=== PATIENT | female | born 1960 | race Caucasian/White ===

== ENCOUNTER 2020-03-01 20:45 | Inpatient (IN) | payer BC ==
[~2020-03-01] VITALS: Ht 157.5 cm; Wt 95.7 kg
[2020-03-01 20:45] VITALS: BP 108/62
--- NOTE | 2020-03-01 20:45 | NUR ---
The patient, ASHWIN HARDY, 59 y/o, F admitted by AMARA HILL MD, was given written information regarding hospital policies, unit procedures and contact persons. Patient transferred by EMS from [facility] with acute diverticulitis, Perforated bowel. Patient oriented to room, bed, phone, call light and POC. Patient instructed to call for assistance and verbalized understanding. Will place call to Dr. Hill for admit orders. Valuables were checked and offered security lock up of credit cards/valuables in Patient's purse and Patient declined.
--- NOTE | 2020-03-01 21:04 | NUR ---
See admission assessment/documentation. Awaiting call from Dr. Hill for orders.
--- NOTE | 2020-03-01 21:51 | NUR ---
Call from Dr. Hill, orders received.
[2020-03-01] MEDS ORDERED: ACETAMINOPHEN 650 MG/20.3 ML SOLUTION. PO PRN (22:00)
[2020-03-01] MEDS: IV RINGERS,LACTATED 1000ML 1,000 ML IV SCH (22:24)
[2020-03-01] MEDS: MORPHINE SULFATE 2 MG/ML VIAL. IV PRN (22:24)
[2020-03-01 23:00] VITALS: BP 109/56
[2020-03-02] MEDS: PIPERACILLIN/TAZOBACTAM 4.5 GM in IV NORMAL SALINE 100ML 100 ML IV SCH ×2 (00:47→06:05)
--- NOTE | 2020-03-02 00:48 | NUR ---
Covid swabs obtained and sent to lab.
[2020-03-02] MEDS: MORPHINE SULFATE 2 MG/ML VIAL. IV PRN ×5 (02:39→18:09)
--- NOTE | 2020-03-02 02:45 | NUR ---
Patient transferred post informing her of positive Covid test to room 658 per wheelchair with all belongings, chart and antibiotics. Patient given HIPPA code to call her and give him. Patient was given pain medication prior to transfer and report given to Regis RN. Regis RN meet Patient in room upon arrival.
[2020-03-02 03:00] VITALS: BP 121/68
--- NOTE | 2020-03-02 04:10 | NUR ---
[facility] records received over fax machine. Call to [phone]) and spoke with Crystal AQUINO informing her records tubed to 6S. Records received via tube system by Crystal AQUINO.
[2020-03-02 07:05] VITALS: BP 145/60
[2020-03-02 07:56] LABS: BASO # 0.1 x10^3/uL (0.0-0.2); BASO % 0 % (0-3); EOS # 0.1 x10^3/uL (0.0-0.7); EOS % 1 % (0-3); HEMATOCRIT 40.3 % (36.0-47.0); HEMOGLOBIN 13.6 g/dL (12.0-15.5); LYMPH # 1.6 x10^3/uL (1.0-4.8); LYMPH % 10 % (24-48); MEAN CORPUSCULAR HEMOGLOBIN 30 pg (25-35); MEAN CORPUSCULAR HGB CONC 34 g/dL (31-37); MEAN CORPUSCULAR VOLUME 88 fL (79-100); MONO # 0.7 x10^3/uL (0.0-1.1); MONO % 5 % (0-9); NEUT # 13.6 x10^3/uL (1.8-7.7); NEUT % 85 % (31-73); PLATELET COUNT 177 x10^3/uL (140-400); RED BLOOD COUNT 4.59 x10^6/uL (3.50-5.40); RED CELL DISTRIBUTION WIDTH 22.5 % (11.5-14.5); WHITE BLOOD COUNT 16.1 x10^3/uL (4.0-11.0)
[2020-03-02] MEDS: IV RINGERS,LACTATED 1000ML 1,000 ML IV SCH ×3 (08:00→21:13)
[2020-03-02] MEDS: oxyCODONE/APAP 10/325 1 TAB TABLET PO PRN ×3 (08:19→21:15)
[2020-03-02 08:22] LABS: ALBUMIN/GLOBULIN RATIO 0.9 (1.0-1.7); CALCIUM 8.4 mg/dL (8.5-10.1); CREATININE 0.7 mg/dL (0.6-1.0); GFR 85.6; POTASSIUM 3.7 mmol/L (3.5-5.1); TOTAL BILIRUBIN 0.8 mg/dL (0.2-1.0); TOTAL PROTEIN 6.2 g/dL (6.4-8.2)
[2020-03-02 08:28] LABS: % BANDS 20 % (0-9); % LYMPHS 13 % (24-48); % MONOS 3 % (0-10); % SEGS 64 % (35-66)
[2020-03-02 08:29] LABS: PLT ESTIMATE ADEQUATE (ADEQUATE)
[2020-03-02 08:32] LABS: ANISOCYTOSIS MOD; MICROCYTOSIS SLIGHT
[2020-03-02 08:33] LABS: TOXIC GRANULATION SLIGHT
[2020-03-02 11:05] VITALS: BP 110/78
[2020-03-02] MEDS: PIPERACILLIN/TAZOBACTAM 3.375 GM in IV NORMAL SALINE 50ML 50 ML IV SCH ×3 (12:04→21:14)
--- NOTE | 2020-03-02 14:20 | PDOC1 ---
History and Physical Date of Service: DOS: DATE: 03/02/20 TIME: 14:12 Chief Complaint: Chief Complain: Abdominal pain History of Present Illness: HPI: Patient is a 59-year-old female with past medical history of rheumatoid arthritis and diverticulosis which she presents with lower quadrant abdominal pain aching, 10 out of 10, nonradiating, constant. Patient states that she developed this pain that started on Saturday after she had Chinese fries and biscuits. She did not have any fibers or fruits. She states she is normally fairly regular with normal bowel movements daily. She has been constipated for approximately 4 days. Her last bowel movement was mucousy and small but no blood. Denies fevers, cough, shortness of breath, chest pain, dysuria, bloody stools. Of note, patient was also found at [facility] ER to be COVID positive. Dr. Glaser from general surgery was consulted at the time and only recommended IV antibiotics, keep patient n.p.o., and that the patient did not need any surgical intervention at that time. Patient was transferred here for higher level of care. Past Medical/Surgical History: PMH/PSH: Past medical history: Rheumatoid arthritis, History of diverticulosis Past surgical history: Bilateral total knee replacement, partial hysterectomy Allergies: Allergies: Coded Allergies: abatacept (Verified Allergy, Severe, 03/01/20) Family History: Family History: Reviewed and positive for diabetes and high cholesterol in mother. Stomach cancer in the father Social History: Social History: Denies smoking, alcohol, or drug abuse Current Medications: Current Medications Current Medications Ringer's Solution 1,000 ml @ 100 mls/hr Q10H IV Last administered on 03/01/20at 22:24; Start 03/01/20 at 22:00 Acetaminophen (Tylenol) 650 mg PRN Q6HRS PRN PO TEMP/MILD PAIN; Start 03/01/20 at 22:00 Morphine Sulfate (Morphine Sulfate) 2 mg PRN Q3HRS PRN IV PAIN Last administered on 03/02/20at 06:04; Start 03/01/20 at 22:00; Stop 03/02/20 at 08:09; Status DC Piperacillin Sod/ Tazobactam Sod 4.5 gm/Sodium Chloride 100 ml @ 200 mls/hr Q6HRS IV Last administered on 03/02/20at 06:05; Start 03/02/20 at 00:00; Stop 03/02/20 at 10:11; Status DC Morphine Sulfate (Morphine Sulfate) 2 mg PRN Q2HR PRN IV PAIN Last administered on 03/02/20at 12:28; Start 03/02/20 at 08:15 Oxycodone/ Acetaminophen (Percocet 10/325) 1 tab PRN Q6HRS PRN PO MODERATE-SEVERE PAIN Last administered on 03/02/20at 08:19; Start 03/02/20 at 08:15 Lactobacillus Rhamnosus (Culturelle) 1 cap BID PO ; Start 03/02/20 at 21:00 Piperacillin Sod/ Tazobactam Sod 3.375 gm/Sodium Chloride 50 ml @ 100 mls/hr Q6HRS IV Last administered on 03/02/20at 12:04; Start 03/02/20 at 12:00 ROS: Review of Systems Review of System REVIEW OF SYSTEMS: GENERAL: Denies weakness SKIN: No bruising, hair changes or rashes. EYES: No blurred, double or loss of vision. NOSE AND THROAT: No history of nosebleeds, hoarseness or sore throat. HEART: No history of palpitations, chest pain or shortness of breath on exertion. LUNGS: Denies cough, hemoptysis, wheezing or shortness of breath. GASTROINTESTINAL: Denies changes in appetite, nausea, vomiting, diarrhea or constipation. GENITOURINARY: No history of frequency, urgency, hesitancy or nocturia. NEUROLOGIC: Denies history of numbness, tingling, or tremor. PSYCHIATRIC: No history of panic, anxiety or depression. ENDOCRINE: No history of heat or cold intolerance, polyuria or polydipsia. EXTREMITIES: Denies joint pain, pain on walking or stiffness. Physical Exam: Vital Signs: Vital Signs Date Time Temp Pulse Resp B/P (MAP) Pulse Ox O2 Delivery O2 Flow Rate FiO2 03/02/20 11:05 98.4 77 20 110/78 (89) 97 Room Air 98.4 Physcial Exam: GEN: No apparent distress. Alert and oriented HEENT: Normal cephalic, atraumatic, external auditory canals are patent EYES: Extraocular muscles are intact, pupil are equally round and reactive to light and accommodation MUSCULOSKELETAL: Well developed , well nourished, good range of motion ENDOCRINE: No thyromegaly was palpated LYMPHATICS: No cervical chain or axillary nodes were noted HEMATOPOIETIC: No bruising NECK: Supple, no JVD, no thyromegaly was noted LUNGS: Clear to auscultation in all lung jang without rhonchi or wheezing HEART: RRR, S!, S2 present. Peripheral pulses intact, no obvious murmurs noted ABDOMEN: Soft, nontender. Positive bowel sounds, no organomegaly, normal bowel sounds EXTREMITIES: Without clubbing, cyanosis, or edema. Pedal pulses intact. Negative Homans sign NEUROLOGIC: Normal speech and tone. A&O x 3, moves all extremities, no o bvious focal deficits PSYCHIATRIC: Normal affect, normal mood. Stable SKIN: No ulcerations or rashes, good skin turgor, no jaundice VASCULAR: Good capillary refill, neurovascular bundle appears to be intact Labs: Labs: Laboratory Tests Test 03/02/20 00:48 03/02/20 07:48 SARS-CoV-2 Antigen (Rapid) Positive (NEGATIVE) White Blood Count 16.1 x10^3/uL (4.0-11.0) Red Blood Count 4.59 x10^6/uL (3.50-5.40) Hemoglobin 13.6 g/dL (12.0-15.5) Hematocrit 40.3 % (36.0-47.0) Mean Corpuscular Volume 88 fL (79-100) Mean Corpuscular Hemoglobin 30 pg (25-35) Mean Corpuscular Hemoglobin Concent 34 g/dL (31-37) Red Cell Distribution Width 22.5 % (11.5-14.5) Platelet Count 177 x10^3/uL (140-400) Neutrophils (%) (Auto) 85 % (31-73) Lymphocytes (%) (Auto) 10 % (24-48) Monocytes (%) (Auto) 5 % (0-9) Eosinophils (%) (Auto) 1 % (0-3) Basophils (%) (Auto) 0 % (0-3) Neutrophils # (Auto) 13.6 x10^3/uL (1.8-7.7) Lymphocytes # (Auto) 1.6 x10^3/uL (1.0-4.8) Monocytes # (Auto) 0.7 x10^3/uL (0.0-1.1) Eosinophils # (Auto) 0.1 x10^3/uL (0.0-0.7) Basophils # (Auto) 0.1 x10^3/uL (0.0-0.2) Segmented Neutrophils % 64 % (35-66) Band Neutrophils % 20 % (0-9) Lymphocytes % 13 % (24-48) Monocytes % 3 % (0-10) Toxic Granulation Slight Platelet Estimate Adequate (ADEQUATE) Anisocytosis Mod Microcytosis Slight Sodium Level 139 mmol/L (136-145) Potassium Level 3.7 mmol/L (3.5-5.1) Chloride Level 104 mmol/L (98-107) Carbon Dioxide Level 26 mmol/L (21-32) Anion Gap 9 (6-14) Blood Urea Nitrogen 10 mg/dL (7-20) Creatinine 0.7 mg/dL (0.6-1.0) Estimated GFR (Cockcroft-Gault) 85.6 BUN/Creatinine Ratio 14 (6-20) Glucose Level 113 mg/dL (70-99) Calcium Level 8.4 mg/dL (8.5-10.1) Total Bilirubin 0.8 mg/dL (0.2-1.0) Aspartate Amino Transf (AST/SGOT) 10 U/L (15-37) Alanine Aminotransferase (ALT/SGPT) 16 U/L (14-59) Alkaline Phosphatase 59 U/L (46-116) Total Protein 6.2 g/dL (6.4-8.2) Albumin 3.0 g/dL (3.4-5.0) Albumin/Globulin Ratio 0.9 (1.0-1.7) Laboratory Tests Test 03/02/20 00:48 03/02/20 07:48 SARS-CoV-2 Antigen (Rapid) Positive (NEGATIVE) White Blood Count 16.1 x10^3/uL (4.0-11.0) Red Blood Count 4.59 x10^6/uL (3.50-5.40) Hemoglobin 13.6 g/dL (12.0-15.5) Hematocrit 40.3 % (36.0-47.0) Mean Corpuscular Volume 88 fL (79-100) Mean Corpuscular Hemoglobin 30 pg (25-35) Mean Corpuscular Hemoglobin Concent 34 g/dL (31-37) Red Cell Distribution Width 22.5 % (11.5-14.5) Platelet Count 177 x10^3/uL (140-400) Neutrophils (%) (Auto) 85 % (31-73) Lymphocytes (%) (Auto) 10 % (24-48) Monocytes (%) (Auto) 5 % (0-9) Eosinophils (%) (Auto) 1 % (0-3) Basophils (%) (Auto) 0 % (0-3) Neutrophils # (Auto) 13.6 x10^3/uL (1.8-7.7) Lymphocytes # (Auto) 1.6 x10^3/uL (1.0-4.8) Monocytes # (Auto) 0.7 x10^3/uL (0.0-1.1) Eosinophils # (Auto) 0.1 x10^3/uL (0.0-0.7) Basophils # (Auto) 0.1 x10^3/uL (0.0-0.2) Segmented Neutrophils % 64 % (35-66) Band Neutrophils % 20 % (0-9) Lymphocytes % 13 % (24-48) Monocytes % 3 % (0-10) Toxic Granulation Slight Platelet Estimate Adequate (ADEQUATE) Anisocytosis Mod Microcytosis Slight Sodium Level 139 mmol/L (136-145) Potassium Level 3.7 mmol/L (3.5-5.1) Chloride Level 104 mmol/L (98-107) Carbon Dioxide Level 26 mmol/L (21-32) Anion Gap 9 (6-14) Blood Urea Nitrogen 10 mg/dL (7-20) Creatinine 0.7 mg/dL (0.6-1.0) Estimated GFR (Cockcroft-Gault) 85.6 BUN/Creatinine Ratio 14 (6-20) Glucose Level 113 mg/dL (70-99) Calcium Level 8.4 mg/dL (8.5-10.1) Total Bilirubin 0.8 mg/dL (0.2-1.0) Aspartate Amino Transf (AST/SGOT) 10 U/L (15-37) Alanine Aminotransferase (ALT/SGPT) 16 U/L (14-59) Alkaline Phosphatase 59 U/L (46-116) Total Protein 6.2 g/dL (6.4-8.2) Albumin 3.0 g/dL (3.4-5.0) Albumin/Globulin Ratio 0.9 (1.0-1.7) Images: Images CT abdomen pelvis reviewed from [facility] Showing sigmoid diverticulitis with focal contained perforation Right-sided nephrolithiasis nonobstructive Distended gallbladder Assessment/Plan Assessment/Plan COVID-19 infection Abdominal pain due to acute diverticulitis with contained perforation History of rheumatoid arthritis Admit to medicine for further management GI consult Continue IV Zosyn Serial abdominal exams Keep n.p.o. with sips with meds until passing flatus Lovenox for DVT prophylaxis ADA diet Full code Discussed with RN and SW Disposition inpatient care as above Surrogate decision maker is Justifications for Admission Other Justification LEONIE GUTIERREZ MD Mar 02, 2020 14:20
[2020-03-02 15:05] VITALS: BP 123/77
--- NOTE | 2020-03-02 16:04 | PDOC2 ---
GI CONSULT Date of Service: DATE: 03/02/20 TIME: 15:52 Reason For Consult: diverticulitis with contained perf HPI: HPI: 59 y/o female from [facility] who tested positive for COVID-19. Sudden onset of LLQ pain on Saturday, no precipitating events but mentions she ate some fries. Associated w/ change in bowel habits - usualyl has very regular bowel pattern but has felt constipated x 4 days - describes small stools. Vomited yesterday x 1. Mild fever. CT report reviewed: findings of acute diverticulitis with a focal contained perforation adjacent to the sigmoid colon measuring 4 x 2.5cm, moderate-sized hiatal hernia which contains portions of the pancreas, distended GB w/o infl ammation, right-sided nephrolithiasis. H/o GERD on omeprazole. Also reports hiatal hernia and "I've been burping." No dysphagia, diarrhea, hematochezia, melena, or weight loss. Tells me EGD and colonoscopy w/ Dr. Garcia @ [facility] ~1 month ago showed Meyers's esophagus, pre-cancerous colon polyps, and diverticulosis. No GB, liver, pancreas, or PUD history. Crying when I saw her - morphine not working, Percocet helps but worried it was be constipating. D/w nurse - Percocet helps quickly, otherwise crying. Ate regular food earlier, now NPO. Reports surgery has seen. PMH: PMH: RA bilateral knee replacements, partial hysterectomy FH: Family History: Cancer (father - stomach) Social History: Smoke: No ALCOHOL: none Drugs: Marijuana (tox screen +) ROS: GEN: +fever HEENT: Denies blurred vision, sore throat CV: Denies chest pain RESP: Denies shortness of air, cough GI: Per HPI : Denies hematuria, dysuria ENDO: Denies weight changes NEURO: Denies confusion, dizziness MSK: Denies weakness, joint pain/swelling SKIN: Denies jaundice, pruritus Vitals: Vitals: Vital Signs Date Time Temp Pulse Resp B/P (MAP) Pulse Ox O2 Delivery O2 Flow Rate FiO2 03/02/20 11:05 98.4 77 20 110/78 (89) 97 Room Air 98.4 Labs: Labs: Laboratory Tests Test 03/02/20 00:48 03/02/20 07:48 SARS-CoV-2 Antigen (Rapid) Positive (NEGATIVE) White Blood Count 16.1 x10^3/uL (4.0-11.0) Red Blood Count 4.59 x10^6/uL (3.50-5.40) Hemoglobin 13.6 g/dL (12.0-15.5) Hematocrit 40.3 % (36.0-47.0) Mean Corpuscular Volume 88 fL (79-100) Mean Corpuscular Hemoglobin 30 pg (25-35) Mean Corpuscular Hemoglobin Concent 34 g/dL (31-37) Red Cell Distribution Width 22.5 % (11.5-14.5) Platelet Count 177 x10^3/uL (140-400) Neutrophils (%) (Auto) 85 % (31-73) Lymphocytes (%) (Auto) 10 % (24-48) Monocytes (%) (Auto) 5 % (0-9) Eosinophils (%) (Auto) 1 % (0-3) Basophils (%) (Auto) 0 % (0-3) Neutrophils # (Auto) 13.6 x10^3/uL (1.8-7.7) Lymphocytes # (Auto) 1.6 x10^3/uL (1.0-4.8) Monocytes # (Auto) 0.7 x10^3/uL (0.0-1.1) Eosinophils # (Auto) 0.1 x10^3/uL (0.0-0.7) Basophils # (Auto) 0.1 x10^3/uL (0.0-0.2) Segmented Neutrophils % 64 % (35-66) Band Neutrophils % 20 % (0-9) Lymphocytes % 13 % (24-48) Monocytes % 3 % (0-10) Toxic Granulation Slight Platelet Estimate Adequate (ADEQUATE) Anisocytosis Mod Microcytosis Slight Sodium Level 139 mmol/L (136-145) Potassium Level 3.7 mmol/L (3.5-5.1) Chloride Level 104 mmol/L (98-107) Carbon Dioxide Level 26 mmol/L (21-32) Anion Gap 9 (6-14) Blood Urea Nitrogen 10 mg/dL (7-20) Creatinine 0.7 mg/dL (0.6-1.0) Estimated GFR (Cockcroft-Gault) 85.6 BUN/Creatinine Ratio 14 (6-20) Glucose Level 113 mg/dL (70-99) Calcium Level 8.4 mg/dL (8.5-10.1) Total Bilirubin 0.8 mg/dL (0.2-1.0) Aspartate Amino Transf (AST/SGOT) 10 U/L (15-37) Alanine Aminotransferase (ALT/SGPT) 16 U/L (14-59) Alkaline Phosphatase 59 U/L (46-116) Total Protein 6.2 g/dL (6.4-8.2) Albumin 3.0 g/dL (3.4-5.0) Albumin/Globulin Ratio 0.9 (1.0-1.7) Allergies: Coded Allergies: abatacept (Verified Allergy, Severe, 03/01/20) Medications: Current Medications Medications (Trade) Dose Ordered Sig/Cristiane Route PRN Reason Start Time Stop Time Status Last Admin Dose Admin Ringer's Solution 1,000 ml @ 100 mls/hr Q10H IV 03/01/20 22:00 03/02/20 08:00 Morphine Sulfate (Morphine Sulfate) 2 mg PRN Q3HRS PRN IV PAIN 03/01/20 22:00 03/02/20 08:09 DC 03/02/20 06:04 Piperacillin Sod/ Tazobactam Sod 4.5 gm/Sodium Chloride 100 ml @ 200 mls/hr Q6HRS IV 03/02/20 00:00 03/02/20 10:11 DC 03/02/20 06:05 Morphine Sulfate (Morphine Sulfate) 2 mg PRN Q2HR PRN IV PAIN 03/02/20 08:15 03/02/20 12:28 Oxycodone/ Acetaminophen (Percocet 10/325) 1 tab PRN Q6HRS PRN PO MODERATE-SEVERE PAIN 03/02/20 08:15 03/02/20 15:07 Piperacillin Sod/ Tazobactam Sod 3.375 gm/Sodium Chloride 50 ml @ 100 mls/hr Q6HRS IV 03/02/20 12:00 03/02/20 12:04 Imaging: Imaging: Per HPI. PE: GEN: was asleep, then crying during interview HEENT: Atraumatic, PERRL LUNGS: CTAB HEART: RRR ABD: quiet, soft, LLQ quite tender to light palpation EXTREMITY: No edema SKIN: No rashes, no jaundice NEURO/PSYCH: A & O 3, anxious A/P: A/P: LLQ pain, constipation, fever, vomiting +COVID-19, leukocytosis Diverticulitis w/ contained perf GERD/Meyers's, hiatal hernia - on PPI, EGD ~1 month ago w/ Dr. Garcia CRC screen, h/o adenomatous polyps - colonoscopy ~1 month ago w/ Dr. Garcia -- Continue atbx and NPO, follow surgery recs. Defer pain management to Dr. Andrews. IV PPI for GERD history. JOHNNIE KING Mar 02, 2020 16:04
--- NOTE | 2020-03-02 17:17 | NUR ---
SW following. Spoke with RN and reviewed chart. Pt from home. SW attempted to call into pt's room as pt is COVID positive, but there was no answer. SW currently on IV Zosyn and IV pain medication. Pt on room air and GI soft diet. SW following for discharge planning.
--- NOTE | 2020-03-02 18:27 | NUR ---
Discharge Note: DAYANA HARDY [facility] Discharge instructions and discharge home medications reviewed with Patient and a copy given. All questions have been answered and understanding verbalized. The following instructions and handouts were given: SOB Discontinued lines and drains: Peripheral IV intact. Patient discharged to Home or Self Care with Family Member via Wheelchair
[2020-03-02] MEDS ORDERED: NALOXONE 0.4 MG/ML VIAL. IV PRN (18:30)
[2020-03-02 19:00] VITALS: BP 91/46
[2020-03-02] MEDS ORDERED: HYDROmorphone 12mg/30ml PCA 30 ML IV PRN (19:00)
[2020-03-02] MEDS: IV NORMAL SALINE 1000ML BAG 1,000 ML IV SCH (21:12)
[2020-03-02] MEDS: LACTOBACILLUS RHAMNOSUS GG 1 CAPSULE. PO SCH (21:14)
[2020-03-02 23:00] VITALS: BP 102/56
[2020-03-03] VITALS (7 sets, daily range): BP systolic 104–126; BP diastolic 55–59
[2020-03-03] MEDS: oxyCODONE/APAP 10/325 1 TAB TABLET PO PRN ×3 (04:22→17:32)
[2020-03-03] MEDS: PIPERACILLIN/TAZOBACTAM 3.375 GM in IV NORMAL SALINE 50ML 50 ML IV SCH ×3 (04:22→17:32)
[2020-03-03] MEDS ORDERED: OMEP40CA45 PO (07:22)
[2020-03-03] MEDS ORDERED: PRED20TA PO (07:24)
[2020-03-03] MEDS: PANTOPRAZOLE IV PUSH 40 MG VIAL. IVP SCH (07:57)
[2020-03-03] MEDS: LACTOBACILLUS RHAMNOSUS GG 1 CAPSULE. PO SCH ×2 (07:57→22:10)
[2020-03-03] MEDS: IV NORMAL SALINE 1000ML BAG 1,000 ML IV SCH ×2 (10:29→18:47)
--- NOTE | 2020-03-03 11:43 | PDOC ---
[employer] PROGRESS NOTE Date of Service DOS: DATE: 03/03/20 TIME: 11:35 Chief Complaint Chief Complaint COVID-19 infection Abdominal pain due to acute diverticulitis with contained perforation History of rheumatoid arthritis A/P: Admit to medicine for further management GI consult Continue IV Zosyn Serial abdominal exams Keep n.p.o. with sips with meds until passing flatus Lovenox for DVT prophylaxis ADA diet Full code Discussed with RN and SW Disposition inpatient care as above Surrogate decision maker is History of Present Illness History of Present Illness Patient is a 59-year-old female with past medical history of rheumatoid arthrit is and diverticulosis which she presents with lower quadrant abdominal pain aching, 10 out of 10, nonradiating, constant. Patient states that she developed this pain that started on Saturday after she had [place] fries and biscuits. She did not have any fibers or fruits. She states she is normally fairly regular with normal bowel movements daily. She has been constipated for approximately 4 days. Her last bowel movement was mucousy and small but no blood. Denies fevers, cough, shortness of breath, chest pain, dysuria, bloody stools. Of note, patient was also found at [facility] ER to be COVID positive. Dr. Glaser from general surgery was consulted at the time and only recommended IV antibiotics, keep patient n.p.o., and that the patient did not need any surgical intervention at that time. Patient was transferred here for higher level of care. 03/03/2020 Patient evaluated bedside. No acute events overnight. Chart and labs reviewed, discussed with RN. Confined perforation, no urgent intervention needed. May need percutaneous drainage or surgery eventually. Continue antibiotics for now. Add Flagyl for anaerobic coverage. Will consult general surgery for evaluation. Vitals/I&O Vitals/I&O: Vital Signs Date Time Temp Pulse Resp B/P (MAP) Pulse Ox O2 Delivery O2 Flow Rate FiO2 03/03/20 11:05 98.8 85 20 119/58 (78) 93 Room Air 98.8 I & O 03/02/20 03/02/20 03/03/20 14:59 22:59 06:59 Intake Total 0 ml 1500 ml Balance 0 ml 1500 ml Physical Exam General: Alert Heart: Regular rate Lungs: Clear Abdomen: No masses Extremities: No clubbing Skin: No rashes Review of Systems Review of Systems: Denies fever, denies chest pain, denies shortness of breath. Assessment and Plan Problems: (1) Sepsis Qualifiers: (2) Acute diverticulitis (3) Perforated bowel Comment Review of Relevant I have reviewed the following items georgina (where applicable) has been applied. Medications: Current Medications Medications (Trade) Dose Ordered Sig/Cristiane Route PRN Reason Start Time Stop Time Status Last Admin Dose Admin Lactobacillus Rhamnosus (Culturelle) 1 cap BID PO 03/02/20 21:00 03/03/20 07:57 Piperacillin Sod/ Tazobactam Sod 3.375 gm/Sodium Chloride 50 ml @ 100 mls/hr Q6HRS IV 03/02/20 12:00 03/03/20 11:30 Pantoprazole Sodium (PROTONIX VIAL for IV PUSH) 40 mg DAILYAC IVP 03/03/20 07:30 03/03/20 07:57 Sodium Chloride 1,000 ml @ 25 mls/hr Q24H IV 03/02/20 19:00 03/02/20 21:12 Hydromorphone HCl 30 ml @ 0 mls/hr CONT PRN PRN IV PER PROTOCOL 03/02/20 19:00 03/02/20 19:15 Sodium Chloride 1,000 ml @ 75 mls/hr [id number] IV 03/03/20 09:45 03/03/20 10:29 Justifications for Admission Other Justification SAIDA NOONAN MD Mar 03, 2020 11:43
--- NOTE | 2020-03-03 13:25 | NUR ---
SW following. Spoke with RN and reviewed chart. Pt to discharge home today, self-care. Pt on oral medications and room air. No further SW needs at this time.
[2020-03-03] MEDS ORDERED: ASCO500C PO (13:46)
[2020-03-03] MEDS ORDERED: CHOL500021 PO (13:46)
[2020-03-03] MEDS ORDERED: ZINC50TA39 PO (13:46)
--- NOTE | 2020-03-03 13:59 | PDOC ---
G I PROGRESS NOTE Subjective In COVID isolation; not seen directly. Objective Discussed with nurse. Pain control better. Trying clears. Physical Exam No direct PE. Review of Relevant I have reviewed the following items georgina (where applicable) has been applied. Labs Laboratory Tests Test 03/02/20 00:48 03/02/20 07:48 SARS-CoV-2 Antigen (Rapid) Positive (NEGATIVE) White Blood Count 16.1 x10^3/uL (4.0-11.0) Red Blood Count 4.59 x10^6/uL (3.50-5.40) Hemoglobin 13.6 g/dL (12.0-15.5) Hematocrit 40.3 % (36.0-47.0) Mean Corpuscular Volume 88 fL (79-100) Mean Corpuscular Hemoglobin 30 pg (25-35) Mean Corpuscular Hemoglobin Concent 34 g/dL (31-37) Red Cell Distribution Width 22.5 % (11.5-14.5) Platelet Count 177 x10^3/uL (140-400) Neutrophils (%) (Auto) 85 % (31-73) Lymphocytes (%) (Auto) 10 % (24-48) Monocytes (%) (Auto) 5 % (0-9) Eosinophils (%) (Auto) 1 % (0-3) Basophils (%) (Auto) 0 % (0-3) Neutrophils # (Auto) 13.6 x10^3/uL (1.8-7.7) Lymphocytes # (Auto) 1.6 x10^3/uL (1.0-4.8) Monocytes # (Auto) 0.7 x10^3/uL (0.0-1.1) Eosinophils # (Auto) 0.1 x10^3/uL (0.0-0.7) Basophils # (Auto) 0.1 x10^3/uL (0.0-0.2) Segmented Neutrophils % 64 % (35-66) Band Neutrophils % 20 % (0-9) Lymphocytes % 13 % (24-48) Monocytes % 3 % (0-10) Toxic Granulation Slight Platelet Estimate Adequate (ADEQUATE) Anisocytosis Mod Microcytosis Slight Sodium Level 139 mmol/L (136-145) Potassium Level 3.7 mmol/L (3.5-5.1) Chloride Level 104 mmol/L (98-107) Carbon Dioxide Level 26 mmol/L (21-32) Anion Gap 9 (6-14) Blood Urea Nitrogen 10 mg/dL (7-20) Creatinine 0.7 mg/dL (0.6-1.0) Estimated GFR (Cockcroft-Gault) 85.6 BUN/Creatinine Ratio 14 (6-20) Glucose Level 113 mg/dL (70-99) Calcium Level 8.4 mg/dL (8.5-10.1) Total Bilirubin 0.8 mg/dL (0.2-1.0) Aspartate Amino Transf (AST/SGOT) 10 U/L (15-37) Alanine Aminotransferase (ALT/SGPT) 16 U/L (14-59) Alkaline Phosphatase 59 U/L (46-116) Total Protein 6.2 g/dL (6.4-8.2) Albumin 3.0 g/dL (3.4-5.0) Albumin/Globulin Ratio 0.9 (1.0-1.7) Vitals/I & O Vital Sign - Last 24 Hours 03/02/20 03/02/20 03/02/20 03/02/20 15:05 19:00 19:45 20:00 Temp 98.5 98.8 98.5 98.8 Pulse 92 66 Resp 19 18 18 B/P (MAP) 123/77 (92) 91/46 (61) Pulse Ox 100 95 95 O2 Delivery Room Air Room Air Room Air Room Air 03/02/20 03/02/20 03/02/20 03/03/20 21:15 22:15 23:00 02:52 Temp 99.6 98.5 99.6 98.5 Pulse 75 81 Resp 18 18 18 17 B/P (MAP) 102/56 (71) 106/59 (75) Pulse Ox 95 95 94 95 O2 Delivery Room Air Room Air Room Air Room Air 03/03/20 03/03/20 03/03/20 03/03/20 04:22 05:22 07:05 08:00 Temp 98.1 98.1 Pulse 80 Resp 18 18 18 B/P (MAP) 104/55 (71) Pulse Ox 95 95 94 O2 Delivery Room Air Room Air Room Air Room Air 03/03/20 11:05 Temp 98.8 98.8 Pulse 85 Resp 20 B/P (MAP) 119/58 (78) Pulse Ox 93 O2 Delivery Room Air Intake and Output 03/02/20 03/02/20 03/03/20 15:00 23:00 07:00 Intake Total 0 ml 1500 ml Balance 0 ml 1500 ml Images Nothing new. Assessment Perforated diverticulitis, confined at present. Plan of Care Note If we can get it, repeat CT re: size of confined perf. If larger, consider IR to drain. Justicifation of Admission Dx: Justifications for Admission: Justification of Admission Dx: Yes Comments: perforated diverticulitis RICKY MORENO MD Mar 03, 2020 13:59
--- NOTE | 2020-03-03 16:39 | RAD ---
EXAM: CT Abdomen and Pelvis without IV contrast INDICATION: Reason: colonic perforation, status? / Spl. Instructions: / History: TECHNIQUE: Multi-detector row CT images were acquired from the lung bases through the abdomen and pelvis without the use of IV contrast. Sagittal and coronal images were acquired from the transaxial data. All CT scans performed at this facility utilize dose optimization techniques as appropriate to the exam, including the following: Automated exposure control and adjustment of the mA and/or KV according to patient size (this includes techniques or standardized protocols for targeted exams where dose is indication/reason for exam). ORAL CONTRAST: None COMPARISON: Abdomen pelvis CT with IV contrast of 03/01/2020 FINDINGS: The absence of IV contrast limits evaluation of soft tissue pathology. LOWER CHEST: Large hiatal hernia containing the majority of the stomach and pancreas is redemonstrated. LIVER: Unremarkable BILIARY SYSTEM: Gallbladder is distended. Bile ducts are not dilated. PANCREAS: Herniated into the large hiatal hernia. Otherwise unremarkable. SPLEEN: Unremarkable ADRENALS: Unremarkable KIDNEYS & URETERS: Unremarkable BLADDER: Unremarkable REPRODUCTIVE ORGANS: Prior hysterectomy. GASTROINTESTINAL: Borderline gastric wall thickening. Otherwise, apart from the aforementioned hiatal hernia, stomach and small bowel are unremarkable. The large bowel again demonstrates marked pericolonic inflammatory stranding in the rectosigmoid colon with extensive colonic diverticuli and wall thickening in the sigmoid colon and rectum. No findings of bowel obstruction. The appendix is not well seen but there are no findings of acute appendicitis present. MESENTERY/PERITONEUM/RETROPERITONEUM: No free air. However, fluid collections in the pelvis have either increased or developed in the interval. The more proximal collection abuts the left upper pelvic sidewall and measures 4.2 cm in diameter by 4.3 cm mediolateral, compared with 2.0 x 3.9 cm at the comparable level on the previous scan (image 73 series 3 this examination compared with image 68 of series 2 on the prior study). More distal collection measures approximately 4.1 x 2.3 x 7.0 cm and has developed since the last study. VASCULAR: Unremarkable LYMPH NODES: No adenopathy OSSEOUS & SOFT TISSUES: Unremarkable IMPRESSION: Perforated sigmoid diverticulitis with developing interloop abscesses in the mesorectal and posterior cul-de-sac in the pelvis. Electronically signed by: Bakari Yanez MD (03/03/2020 4:36 PM) [id number]
[2020-03-03] MEDS: predniSONE 10 MG TABLET PO SCH (16:52)
[2020-03-03] MEDS: CHOLECALCIFEROL (VITAMIN D3) 5,000 UNIT CAPSULE PO SCH (17:03)
[2020-03-03] MEDS: ZINC SULFATE 220 MG CAPSULE. PO SCH (17:03)
[2020-03-03] MEDS: ASCORBIC ACID 500 MG TABLET PO SCH (17:03)
[2020-03-04] VITALS (12 sets, daily range): BP systolic 99–133; BP diastolic 59–68
[2020-03-04] MEDS: PIPERACILLIN/TAZOBACTAM 3.375 GM in IV NORMAL SALINE 50ML 50 ML IV SCH ×5 (00:30→23:33)
[2020-03-04] MEDS: oxyCODONE/APAP 10/325 1 TAB TABLET PO PRN (01:00)
[2020-03-04 04:42] LABS: BASO % 0 % (0-3); EOS # 0.1 x10^3/uL (0.0-0.7); EOS % 1 % (0-3); HEMATOCRIT 35.5 % (36.0-47.0); HEMOGLOBIN 11.9 g/dL (12.0-15.5); LYMPH # 0.7 x10^3/uL (1.0-4.8); LYMPH % 6 % (24-48); MEAN CORPUSCULAR HEMOGLOBIN 30 pg (25-35); MEAN CORPUSCULAR HGB CONC 34 g/dL (31-37); MEAN CORPUSCULAR VOLUME 88 fL (79-100); MONO # 0.4 x10^3/uL (0.0-1.1); MONO % 3 % (0-9); NEUT # 10.2 x10^3/uL (1.8-7.7); NEUT % 90 % (31-73); PLATELET COUNT 183 x10^3/uL (140-400); RED BLOOD COUNT 4.03 x10^6/uL (3.50-5.40); RED CELL DISTRIBUTION WIDTH 19.4 % (11.5-14.5); WHITE BLOOD COUNT 11.3 x10^3/uL (4.0-11.0)
[2020-03-04] MEDS: IV NORMAL SALINE 1000ML BAG 1,000 ML IV SCH ×4 (04:52→21:16)
[2020-03-04 05:37] LABS: C-REACTIVE PROTEIN 156.2 mg/L (0-3.3); CALCIUM 7.9 mg/dL (8.5-10.1); CREATININE 0.6 mg/dL (0.6-1.0); GFR 102.3; POTASSIUM 3.4 mmol/L (3.5-5.1)
[2020-03-04] MEDS: predniSONE 10 MG TABLET PO SCH (09:00)
[2020-03-04 09:53] LABS: PROTHROMBIN TIME PATIENT 13.6 SEC (11.7-14.0)
[2020-03-04] MEDS: PANTOPRAZOLE IV PUSH 40 MG VIAL. IVP SCH (10:28)
--- NOTE | 2020-03-04 11:54 | PDOC ---
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 Hasn't seen surgeon but was told me might need surgery if drain shows fecal material instead of pus - she wants to discuss with surgeon. PCP wants her to go to [facility] and if she can't go to [facility] she should go to [facility]. tested negative. Feels she does not have COVID symptoms. Upset that no one can answer her question about the results of second COVID swab - her understanding is that rapid swab is checked and second swab is sent for confirmation - why hasn't she received results? Objective: Objective: Nurse present - was told than if rapid test is positive, second swab (though collected) is not sent - primary offered to confirm COVID infection w/ PCR test - patient wants to proceed. Vital Signs: Vital Signs Date Time Temp Pulse Resp B/P (MAP) Pulse Ox O2 Delivery O2 Flow Rate FiO2 03/04/20 10:49 98.2 83 20 100/65 (77) 95 Nasal Cannula 2.0 98.2 Labs: Laboratory Tests Test 03/04/20 03:15 03/04/20 09:30 White Blood Count 11.3 x10^3/uL Red Blood Count 4.03 x10^6/uL Hemoglobin 11.9 g/dL Hematocrit 35.5 % Mean Corpuscular Volume 88 fL Mean Corpuscular Hemoglobin 30 pg Mean Corpuscular Hemoglobin Concent 34 g/dL Red Cell Distribution Width 19.4 % Platelet Count 183 x10^3/uL Neutrophils (%) (Auto) 90 % Lymphocytes (%) (Auto) 6 % Monocytes (%) (Auto) 3 % Eosinophils (%) (Auto) 1 % Basophils (%) (Auto) 0 % Neutrophils # (Auto) 10.2 x10^3/uL Lymphocytes # (Auto) 0.7 x10^3/uL Monocytes # (Auto) 0.4 x10^3/uL Eosinophils # (Auto) 0.1 x10^3/uL Basophils # (Auto) 0.0 x10^3/uL Sodium Level 137 mmol/L Potassium Level 3.4 mmol/L Chloride Level 103 mmol/L Carbon Dioxide Level 27 mmol/L Anion Gap 7 Blood Urea Nitrogen 13 mg/dL Creatinine 0.6 mg/dL Estimated GFR (Cockcroft-Gault) 102.3 Glucose Level 82 mg/dL Calcium Level 7.9 mg/dL C-Reactive Protein, Quantitative 156.2 mg/L Prothrombin Time 13.6 SEC Prothromb Time International Ratio 1.1 Imaging: CT A/P 03/03 IMPRESSION: Perforated sigmoid diverticulitis with developing interloop abscesses in the mesorectal and posterior cul-de-sac in the pelvis. PE: GEN: NAD LUNGS: NC 2L, clear HEART: RRR ABD: soft, LLQ tenderness NEURO/PSYCH: A & O 3 A/P: +COVID-19 - rapid test positive Leukocytosis - better Elevated CRP Diverticulitis w/ perf/abscess - colonoscopy ~1 month ago @ [facility] w/ Dr. Garcia -- Keep NPO (sips ok), continue antibiotics. Interval CT as above, IR asked to see. Time spent listening to her concerns, all questions answered to her satisfaction. She wants to proceed w/ IR eval and go from there. Justicifation of Admission Dx: Justifications for Admission: Justification of Admission Dx: Yes JOHNNIE KING Mar 04, 2020 11:54
[2020-03-04] MEDS ORDERED: LIDOCAINE WITH 8.4% SOD BICARB 3 ML DISP.SYRIN. ONE (12:48)
[2020-03-04] MEDS ORDERED: MIDAZOLAM HCL/PF 5 MG/5 ML VIAL. ONE (13:05)
[2020-03-04] MEDS ORDERED: fentaNYL PF VIAL 100 MCG/2 ML VIAL ONE (13:05)
[2020-03-04] MEDS ORDERED: LIDOCAINE WITH 8.4% SOD BICARB 3 ML DISP.SYRIN. IJ ONE (14:00)
[2020-03-04] MEDS ORDERED: MIDAZOLAM HCL/PF 5 MG/5 ML VIAL. IV ONE (14:00)
[2020-03-04] MEDS ORDERED: fentaNYL PF VIAL 100 MCG/2 ML VIAL IV ONE (14:00)
--- NOTE | 2020-03-04 15:23 | RAD ---
CT-guided drainage, perirectal abscess 03/04/2020 Procedure: Clinical Indication: Perforated diverticulitis with perirectal abscess?/ Discussion: The procedure was explained in its entirety to the patient or the patients designated welding equipment sales representative by a member of the treatment team, including a discussion of the risks, benefits and commonly accepted alternatives to the procedure, as well as the expected consequences of no therapy whatsoever. Discussion of the risks included, but was not limited to, those that are most frequent and those that are rare but possibly severe or life-threatening, as well as the possibility of unforeseen complications. All elements of maximal sterile barrier technique including the use of a cap, mask, sterile gown, sterile gloves, large sterile sheet, appropriate hand hygiene, and 2% chlorhexidine for cutaneous antisepsis (or acceptable alternative antiseptic per current guidelines) were followed for this procedure. The patient was placed in the prone position. CT imaging redemonstrates a perirectal abscess. A transgluteal approach was necessary. 1% lidocaine was administered for local anesthesia. Under intermittent CT guidance a 17-gauge cannula was advanced to the abscess. A wire was advanced into the abscess cavity, over which following dilatation a 10 Belarusian drain was placed. Purulent material was aspirated. Catheter was connected to bulb suction. The catheter was secured in place. Sterile dressings were applied. The procedures performed under conscious sedation including continuous cardiopulmonary monitoring via dedicated sedation nurse. [id number] sedation time: 30 minutes Impression: CT-guided drainage, perirectal abscess
--- NOTE | 2020-03-04 15:30 | PDOC ---
[facility] PROGRESS NOTE Date of Service DOS: DATE: 03/04/20 TIME: 15:25 Chief Complaint Chief Complaint COVID-19 infection Abdominal pain due to acute diverticulitis with contained perforation with possible developing abscesses History of rheumatoid arthritis A/P: Pending IR drainage of abscesses Admit to medicine for further management Appreciate surgical recommendationssurgical intervention if IR drainage of abscesses is successful Appreciate GI recommendationsIR drainage Continue IV Zosyn Serial abdominal exams Keep n.p.o. with sips with meds until passing flatus Lovenox for DVT prophylaxis ADA diet Full code Discussed with RN and SW Disposition inpatient care as above Surrogate decision maker is History of Present Illness History of Present Illness 03/04/2020 No acute events overnight. Patient is tearful with the way she has been treated this current hospital. She felt she is neglected and no one is really informing her about her situation. It was discussed in detail again her the current plan with her developing abscesses and at that a interventional drain will need to be placed. It was also explained in great detail of the drain would not drain out entirely all her abscesses and that would lead to a more invasive surgical intervention. Patient expressed understanding and will continue to work with us for further management. 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 We will keep her on strict n.p.o. until she has more return of bowel function. Patient's chart, labs, images were reviewed and discussed with RN Patient is a 59-year-old female with past medical history of rheumatoid arthritis and diverticulosis which she presents with lower quadrant abdominal pain aching, 10 out of 10, nonradiating, constant. Patient states that she developed this pain that started on Saturday after she had Turkish fries and biscuits. She did not have any fibers or fruits. She states she is normally fairly regular with normal bowel movements daily. She has been constipated for approximately 4 days. Her last bowel movement was mucousy and small but no blood. Denies fevers, cough, shortness of breath, chest pain, dysuria, bloody stools. Of note, patient was also found at [facility] ER to be COVID positive. Dr. Glaser from general surgery was consulted at the time and only recommended IV antibiotics, keep patient n.p.o., and that the patient did not need any surgical intervention at that time. Patient was transferred here for higher level of care. 03/03/2020 Patient evaluated bedside. No acute events overnight. Chart and labs reviewed, discussed with RN. Confined perforation, no urgent intervention needed. May need percutaneous drainage or surgery eventually. Continue antibiotics for now. Add Flagyl for anaerobic coverage. Will consult general surgery for evaluati on. Vitals/I&O Vitals/I&O: Vital Signs Date Time Temp Pulse Resp B/P (MAP) Pulse Ox O2 Delivery O2 Flow Rate FiO2 03/04/20 14:00 21 95 Nasal Cannula 4.0 03/04/20 13:58 89 03/04/20 10:49 98.2 100/65 (77) 98.2 I & O 03/03/20 03/03/20 03/04/20 15:00 23:00 07:00 Intake Total 500 ml 700 ml 0 ml Balance 500 ml 700 ml 0 ml Physical Exam Physical Exam: GEN: No apparent distress. Alert and oriented HEENT: Normal cephalic, atraumatic, external auditory canals are patent NECK: Supple, no JVD, no thyromegaly was noted LUNGS: Bilateral clear HEART: RRR, S1, S2 present. Peripheral pulses intact, no obvious murmurs noted ABDOMEN: Soft, nontender. Positive bowel sounds, no organomegaly, normal bowel sounds EXTREMITIES: Without clubbing, cyanosis, or edema. Pedal pulses intact. Negative Homans sign General: Alert Heart: Regular rate Lungs: Clear Abdomen: No masses Extremities: No clubbing Skin: No rashes Labs Labs: Laboratory Tests Test 03/04/20 03:15 03/04/20 09:30 White Blood Count 11.3 x10^3/uL (4.0-11.0) Red Blood Count 4.03 x10^6/uL (3.50-5.40) Hemoglobin 11.9 g/dL (12.0-15.5) Hematocrit 35.5 % (36.0-47.0) Mean Corpuscular Volume 88 fL (79-100) Mean Corpuscular Hemoglobin 30 pg (25-35) Mean Corpuscular Hemoglobin Concent 34 g/dL (31-37) Red Cell Distribution Width 19.4 % (11.5-14.5) Platelet Count 183 x10^3/uL (140-400) Neutrophils (%) (Auto) 90 % (31-73) Lymphocytes (%) (Auto) 6 % (24-48) Monocytes (%) (Auto) 3 % (0-9) Eosinophils (%) (Auto) 1 % (0-3) Basophils (%) (Auto) 0 % (0-3) Neutrophils # (Auto) 10.2 x10^3/uL (1.8-7.7) Lymphocytes # (Auto) 0.7 x10^3/uL (1.0-4.8) Monocytes # (Auto) 0.4 x10^3/uL (0.0-1.1) Eosinophils # (Auto) 0.1 x10^3/uL (0.0-0.7) Basophils # (Auto) 0.0 x10^3/uL (0.0-0.2) Sodium Level 137 mmol/L (136-145) Potassium Level 3.4 mmol/L (3.5-5.1) Chloride Level 103 mmol/L (98-107) Carbon Dioxide Level 27 mmol/L (21-32) Anion Gap 7 (6-14) Blood Urea Nitrogen 13 mg/dL (7-20) Creatinine 0.6 mg/dL (0.6-1.0) Estimated GFR (Cockcroft-Gault) 102.3 Glucose Level 82 mg/dL (70-99) Calcium Level 7.9 mg/dL (8.5-10.1) C-Reactive Protein, Quantitative 156.2 mg/L (0-3.3) Prothrombin Time 13.6 SEC (11.7-14.0) Prothromb Time International Ratio 1.1 (0.8-1.1) Comment Review of Relevant I have reviewed the following items georgina (where applicable) has been applied. Medications: Current Medications Medications (Trade) Dose Ordered Sig/Cristiane Route PRN Reason Start Time Stop Time Status Last Admin Dose Admin Ascorbic Acid (Vitamin C) 1,000 mg DAILY PO 03/03/20 17:00 03/03/20 17:03 Vitamin D (Vitamin D3) 5,000 unit DAILY PO 03/03/20 17:00 03/03/20 17:03 Zinc Sulfate (Orazinc) 220 mg DAILY PO 03/03/20 17:00 03/03/20 17:03 Lidocaine HCl (Buffered Lidocaine 1%) 3 ml 1X ONCE IJ 03/04/20 14:00 03/04/20 14:01 DC 03/04/20 14:00 Midazolam HCl (Versed) 5 mg 1X ONCE IV 03/04/20 14:00 03/04/20 14:01 DC 03/04/20 14:00 Fentanyl Citrate (Fentanyl 2ml Vial) 100 mcg 1X ONCE IV 03/04/20 14:00 03/04/20 14:01 DC 03/04/20 14:00 Justifications for Admission Other Justification LEONIE GUTIERREZ MD Mar 04, 2020 15:30
--- NOTE | 2020-03-04 16:00 | PDOC2 ---
CONSULT Date of Consult Date of Consult DATE: 03/04/20 TIME: 15:56 Reason for Consult Reason for Consult: Perforated diverticulitis Referring Physician Referring Physician: Dr. Hill Identification/Chief Complaint Chief Complaint abd pain Source Source: Chart review, Patient History of Present Illness Reason for Visit: 59 yo F with c/o abd pain. Admitted with diagnosis of perforated diverticulitis. Also concern for covid. Pt seen enroute to IR for drainage. Some bloating, but she feels better then admission. Passing some flatus. Past Medical History GI: Diverticulosis Rheumatologic: Rheumatoid arthritis Past Surgical History Past Surgical History: Hysterectomy Family History Family History: No Significant Social History No ALCOHOL: none Drugs: Marijuana (tox screen +) Current Medications Current Medications Current Medications Ringer's Solution 1,000 ml @ 100 mls/hr Q10H IV Last administered on 03/02/20at 21:13; Start 03/01/20 at 22:00; Stop 03/03/20 at 09:45; Status DC Acetaminophen (Tylenol) 650 mg PRN Q6HRS PRN PO TEMP/MILD PAIN; Start 03/01/20 at 22:00 Morphine Sulfate (Morphine Sulfate) 2 mg PRN Q3HRS PRN IV PAIN Last administered on 03/02/20at 06:04; Start 03/01/20 at 22:00; Stop 03/02/20 at 08:09; Status DC Piperacillin Sod/ Tazobactam Sod 4.5 gm/Sodium Chloride 100 ml @ 200 mls/hr Q6HRS IV Last administered on 03/02/20at 06:05; Start 03/02/20 at 00:00; Stop 03/02/20 at 10:11; Status DC Morphine Sulfate (Morphine Sulfate) 2 mg PRN Q2HR PRN IV PAIN Last administered on 03/02/20at 18:09; Start 03/02/20 at 08:15; Stop 03/02/20 at 18:29; Status DC Oxycodone/ Acetaminophen (Percocet 10/325) 1 tab PRN Q6HRS PRN PO MODERATE- SEVERE PAIN Last administered on 03/04/20at 01:00; Start 03/02/20 at 08:15 Lactobacillus Rhamnosus (Culturelle) 1 cap BID PO Last administered on 03/03/20at 22:10; Start 03/02/20 at 21:00 Piperacillin Sod/ Tazobactam Sod 3.375 gm/Sodium Chloride 50 ml @ 100 mls/hr Q6HRS IV Last administered on 03/04/20at 12:45; Start 03/02/20 at 12:00 Pantoprazole Sodium (PROTONIX VIAL for IV PUSH) 40 mg DAILYAC IVP Last administered on 03/04/20at 10:28; Start 03/03/20 at 07:30 Naloxone HCl (Narcan) 0.4 mg PRN Q2MIN PRN IV SEE INSTRUCTIONS; Start 03/02/20 at 18:30 Sodium Chloride 1,000 ml @ 25 mls/hr Q24H IV Last administered on 03/02/20at 21:12; Start 03/02/20 at 19:00 Hydromorphone HCl 30 ml @ 0 mls/hr CONT PRN PRN IV PER PROTOCOL Last administered on 03/02/20at 19:15; Start 03/02/20 at 19:00 Sodium Chloride 1,000 ml @ 75 mls/hr [id number] IV Last administered on 03/04/20at 04:52; Start 03/03/20 at 09:45 Metronidazole 100 ml @ 100 mls/hr Q8HRS IV Last administered on 03/04/20at 05:56; Start 03/03/20 at 12:00 Prednisone (Prednisone) 10 mg DAILY PO ; Start 03/03/20 at 17:00 Ascorbic Acid (Vitamin C) 1,000 mg DAILY PO Last administered on 03/03/20at 17:03; Start 03/03/20 at 17:00 Vitamin D (Vitamin D3) 5,000 unit DAILY PO Last administered on 03/03/20at 17:03; Start 03/03/20 at 17:00 Zinc Sulfate (Orazinc) 220 mg DAILY PO Last administered on 03/03/20at 17:03; Start 03/03/20 at 17:00 Lidocaine HCl (Buffered Lidocaine 1%) 3 ml STK-MED ONCE .ROUTE ; Start 03/04/20 at 12:48; Stop 03/04/20 at 12:49; Status DC Midazolam HCl (Versed) 5 mg STK-MED ONCE .ROUTE ; Start 03/04/20 at 13:05; Stop 03/04/20 at 13:05; Status DC Fentanyl Citrate (Fentanyl 2ml Vial) 100 mcg STK-MED ONCE .ROUTE ; Start 03/04/20 at 13:05; Stop 03/04/20 at 13:05; Status DC Lidocaine HCl (Buffered Lidocaine 1%) 3 ml 1X ONCE IJ Last administered on 03/04/20at 14:00; Start 03/04/20 at 14:00; Stop 03/04/20 at 14:01; Status DC Midazolam HCl (Versed) 5 mg 1X ONCE IV Last administered on 03/04/20at 14:00; Start 03/04/20 at 14:00; Stop 03/04/20 at 14:01; Status DC Fentanyl Citrate (Fentanyl 2ml Vial) 100 mcg 1X ONCE IV Last administered on 03/04/20at 14:00; Start 03/04/20 at 14:00; Stop 03/04/20 at 14:01; Status DC Active Scripts Active Reported Zinc 50 Mg Tablet 30 Mg PO DAILY D3-50 (Cholecalciferol (Vitamin D3)) 50,000 Unit Capsule 5,000 Unit PO DAILY Vitamin C (Ascorbic Acid) 500 Mg Capsule.er 2 Cap PO DAILY 30 Days Prednisone 20 Mg Tablet 10 Mg PO DAILY Omeprazole 40 Mg Capsule.dr 1 Cap PO DAILY Allergies Allergies: Coded Allergies: abatacept (Verified Allergy, Severe, 03/01/20) ROS Gastrointestinal: Yes Abdominal Pain Physical Exam General: Alert, Oriented X3, Cooperative, mild distress HEENT: Atraumatic Lungs: Normal air movement Abdomen: Soft, Other (obese, min TTP LLQ) Extremities: No clubbing, No cyanosis Skin: No rashes, No breakdown Neuro: Normal speech, Sensation intact Psych/Mental Status: Mental status NL, Mood NL Vitals VITALS Vital Signs Date Time Temp Pulse Resp B/P (MAP) Pulse Ox O2 Delivery O2 Flow Rate FiO2 03/04/20 14:00 21 95 Nasal Cannula 4.0 03/04/20 13:58 89 03/04/20 10:49 98.2 100/65 (77) 98.2 Labs Labs Laboratory Tests Test 03/04/20 03:15 03/04/20 09:30 White Blood Count 11.3 x10^3/uL (4.0-11.0) Red Blood Count 4.03 x10^6/uL (3.50-5.40) Hemoglobin 11.9 g/dL (12.0-15.5) Hematocrit 35.5 % (36.0-47.0) Mean Corpuscular Volume 88 fL (79-100) Mean Corpuscular Hemoglobin 30 pg (25-35) Mean Corpuscular Hemoglobin Concent 34 g/dL (31-37) Red Cell Distribution Width 19.4 % (11.5-14.5) Platelet Count 183 x10^3/uL (140-400) Neutrophils (%) (Auto) 90 % (31-73) Lymphocytes (%) (Auto) 6 % (24-48) Monocytes (%) (Auto) 3 % (0-9) Eosinophils (%) (Auto) 1 % (0-3) Basophils (%) (Auto) 0 % (0-3) Neutrophils # (Auto) 10.2 x10^3/uL (1.8-7.7) Lymphocytes # (Auto) 0.7 x10^3/uL (1.0-4.8) Monocytes # (Auto) 0.4 x10^3/uL (0.0-1.1) Eosinophils # (Auto) 0.1 x10^3/uL (0.0-0.7) Basophils # (Auto) 0.0 x10^3/uL (0.0-0.2) Sodium Level 137 mmol/L (136-145) Potassium Level 3.4 mmol/L (3.5-5.1) Chloride Level 103 mmol/L (98-107) Carbon Dioxide Level 27 mmol/L (21-32) Anion Gap 7 (6-14) Blood Urea Nitrogen 13 mg/dL (7-20) Creatinine 0.6 mg/dL (0.6-1.0) Estimated GFR (Cockcroft-Gault) 102.3 Glucose Level 82 mg/dL (70-99) Calcium Level 7.9 mg/dL (8.5-10.1) C-Reactive Protein, Quantitative 156.2 mg/L (0-3.3) Prothrombin Time 13.6 SEC (11.7-14.0) Prothromb Time International Ratio 1.1 (0.8-1.1) Laboratory Tests Test 03/04/20 03:15 03/04/20 09:30 White Blood Count 11.3 x10^3/uL (4.0-11.0) Red Blood Count 4.03 x10^6/uL (3.50-5.40) Hemoglobin 11.9 g/dL (12.0-15.5) Hematocrit 35.5 % (36.0-47.0) Mean Corpuscular Volume 88 fL (79-100) Mean Corpuscular Hemoglobin 30 pg (25-35) Mean Corpuscular Hemoglobin Concent 34 g/dL (31-37) Red Cell Distribution Width 19.4 % (11.5-14.5) Platelet Count 183 x10^3/uL (140-400) Neutrophils (%) (Auto) 90 % (31-73) Lymphocytes (%) (Auto) 6 % (24-48) Monocytes (%) (Auto) 3 % (0-9) Eosinophils (%) (Auto) 1 % (0-3) Basophils (%) (Auto) 0 % (0-3) Neutrophils # (Auto) 10.2 x10^3/uL (1.8-7.7) Lymphocytes # (Auto) 0.7 x10^3/uL (1.0-4.8) Monocytes # (Auto) 0.4 x10^3/uL (0.0-1.1) Eosinophils # (Auto) 0.1 x10^3/uL (0.0-0.7) Basophils # (Auto) 0.0 x10^3/uL (0.0-0.2) Sodium Level 137 mmol/L (136-145) Potassium Level 3.4 mmol/L (3.5-5.1) Chloride Level 103 mmol/L (98-107) Carbon Dioxide Level 27 mmol/L (21-32) Anion Gap 7 (6-14) Blood Urea Nitrogen 13 mg/dL (7-20) Creatinine 0.6 mg/dL (0.6-1.0) Estimated GFR (Cockcroft-Gault) 102.3 Glucose Level 82 mg/dL (70-99) Calcium Level 7.9 mg/dL (8.5-10.1) C-Reactive Protein, Quantitative 156.2 mg/L (0-3.3) Prothrombin Time 13.6 SEC (11.7-14.0) Prothromb Time International Ratio 1.1 (0.8-1.1) Images Images Diverticulitis with abscess, successful drainage of pus by IR Assessment/Plan Assessment/Plan Peforated divericultitis. cont abx and drainage hopefully will avoid surgery. Thanks for consult! ANDRZEJ PECK MD Mar 04, 2020 16:00
[2020-03-04] MEDS: CHOLECALCIFEROL (VITAMIN D3) 5,000 UNIT CAPSULE PO SCH (16:06)
[2020-03-04] MEDS: ZINC SULFATE 220 MG CAPSULE. PO SCH (16:06)
[2020-03-04] MEDS: ASCORBIC ACID 500 MG TABLET PO SCH (16:08)
[2020-03-04] MEDS: LACTOBACILLUS RHAMNOSUS GG 1 CAPSULE. PO SCH ×2 (16:08→19:09)
--- NOTE | 2020-03-04 17:06 | NUR ---
SW following. Spoke with RN and reviewed chart. Pt is now on 4l 02. ANDREINA unsure about home 02. Pt remains on IV Zosyn. Discharge held from 03/03. ANDREINA attempted to call into pt's room as pt is COVID positive, but there was no answer. ANDREINA has made multiple attempts to reach pt and will continue to follow for discharge planning. Pt will be here through the weekend per Dr. Andrews.
--- NOTE | 2020-03-04 19:33 | NUR ---
After patient came back to room after drain placement around 1410, she was shivering, anxious, hypertensive at 161/114, tachycardic at 113. Drain dressing CDI. Patient finally calmed down, used INFORMATION LEAD. Patient currently resting more comfortably in bed. HR 109, BP 101/61.
--- NOTE | 2020-03-04 20:36 | NUR ---
Frequent vital signs after IR drain placement printed & placed in chart.
[2020-03-05 02:53] VITALS: BP 97/48
[2020-03-05 04:09] LABS: BASO % 0 % (0-3); EOS % 0 % (0-3); HEMOGLOBIN 12.2 g/dL (12.0-15.5); LYMPH # 0.3 x10^3/uL (1.0-4.8); LYMPH % 3 % (24-48); MEAN CORPUSCULAR HEMOGLOBIN 30 pg (25-35); MEAN CORPUSCULAR HGB CONC 34 g/dL (31-37); MEAN CORPUSCULAR VOLUME 88 fL (79-100); MONO # 0.8 x10^3/uL (0.0-1.1); MONO % 6 % (0-9); NEUT # 11.9 x10^3/uL (1.8-7.7); NEUT % 91 % (31-73); PLATELET COUNT 160 x10^3/uL (140-400); RED BLOOD COUNT 4.09 x10^6/uL (3.50-5.40); RED CELL DISTRIBUTION WIDTH 17.4 % (11.5-14.5)
[2020-03-05 04:51] LABS: C-REACTIVE PROTEIN 158.5 mg/L (0-3.3); CALCIUM 7.8 mg/dL (8.5-10.1); CREATININE 0.7 mg/dL (0.6-1.0); GFR 85.6; POTASSIUM 3.1 mmol/L (3.5-5.1)
[2020-03-05] MEDS: PIPERACILLIN/TAZOBACTAM 3.375 GM in IV NORMAL SALINE 50ML 50 ML IV SCH ×4 (04:57→23:28)
[2020-03-05 07:00] VITALS: BP 97/46
[2020-03-05] MEDS: ASCORBIC ACID 500 MG TABLET PO SCH (09:00)
[2020-03-05] MEDS: POTASSIUM CHLORIDE 20 MEQ TABLET.ER. PO SCH ×3 (09:28→14:49)
[2020-03-05] MEDS: PANTOPRAZOLE IV PUSH 40 MG VIAL. IVP SCH (09:28)
[2020-03-05] MEDS: LACTOBACILLUS RHAMNOSUS GG 1 CAPSULE. PO SCH ×2 (09:28→20:41)
[2020-03-05] MEDS: CHOLECALCIFEROL (VITAMIN D3) 5,000 UNIT CAPSULE PO SCH (09:28)
[2020-03-05] MEDS: predniSONE 10 MG TABLET PO SCH (09:28)
[2020-03-05] MEDS: ZINC SULFATE 220 MG CAPSULE. PO SCH (09:28)
--- NOTE | 2020-03-05 10:17 | PDOC ---
[facility] PROGRESS NOTE Date of Service DOS: DATE: 03/05/20 TIME: 10:16 Chief Complaint Chief Complaint COVID-19 infection Abdominal pain due to acute diverticulitis with uncontained perforation with developing abscess status post perirectal IR drain 03/04/2020 History of rheumatoid arthritis Hypokalemia A/P: IV potassium replacement today Appreciate surgical recommendationssuccessful IR drainage, no surgical intervention at this time Appreciate GI recommendationspending recommendations to advance diet Continue IV Zosyn Serial abdominal exams Keep n.p.o. with sips with meds until passing flatus Lovenox for DVT prophylaxis Clear liquid diet Full code Discussed with RN and SW Disposition inpatient care as above Surrogate decision maker is History of Present Illness History of Present Illness 03/05/2020 No acute events overnight. Patient is feeling much better after drain is placed. Pain is controlled. Patient would like to eat something at this time. Patient's chart, labs, images were reviewed and discussed with RN 03/04/2020 No acute events overnight. Patient is tearful with the way she has been treated this current hospital. She felt she is neglected and no one is really informing her about her situation. It was discussed in detail again her the current plan with her developing abscesses and at that a interventional drain will need to be placed. It was also explained in great detail of the drain would not drain out entirely all her abscesses and that would lead to a more invasive surgical intervention. Patient expressed understanding and will continue to work with us for further management. 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 We will keep her on strict n.p.o. until she has more return of bowel function. Patient's chart, labs, images were reviewed and discussed with RN Patient is a 59-year-old female with past medical history of rheumatoid arthritis and diverticulosis which she presents with lower quadrant abdominal pain aching, 10 out of 10, nonradiating, constant. Patient states that she dev eloped this pain that started on Saturday after she had [place] fries and biscuits. She did not have any fibers or fruits. She states she is normally fairly regular with normal bowel movements daily. She has been constipated for approximately 4 days. Her last bowel movement was mucousy and small but no blood. Denies fevers, cough, shortness of breath, chest pain, dysuria, bloody stools. Of note, patient was also found at [facility] ER to be COVID positive. Dr. Glaser from general surgery was consulted at the time and only recommended IV antibiotics, keep patient n.p.o., and that the patient did not need any surgical intervention at that time. Patient was transferred here for higher level of care. 03/03/2020 Patient evaluated bedside. No acute events overnight. Chart and labs reviewed, discussed with RN. Confined perforation, no urgent intervention needed. May need percutaneous drainage or surgery eventually. Continue antibiotics for now. Add Flagyl for anaerobic coverage. Will consult general surgery for evaluation. Vitals/I&O Vitals/I&O: Vital Signs Date Time Temp Pulse Resp B/P (MAP) Pulse Ox O2 Delivery O2 Flow Rate FiO2 03/05/20 07:00 98.0 80 18 97/46 (63) 96 Nasal Cannula 3.0 98.0 I & O 03/04/20 03/04/20 03/05/20 15:00 23:00 07:00 Intake Total 100 ml 1000 ml Output Total 40 ml 485 ml Balance 60 ml 515 ml Physical Exam Physical Exam: GEN: No apparent distress. Alert and oriented HEENT: Normal cephalic, atraumatic, external auditory canals are patent NECK: Supple, no JVD, no thyromegaly was noted LUNGS: Bilateral clear HEART: RRR, S1, S2 present. Peripheral pulses intact, no obvious murmurs noted ABDOMEN: Soft, nontender. Positive bowel sounds, no organomegaly, normal bowel sounds EXTREMITIES: Without clubbing, cyanosis, or edema. Pedal pulses intact. Negative Homans sign General: Alert, Oriented X3, Cooperative, mild distress Heart: Regular rate Lungs: Clear Abdomen: Soft, Other (obese, min TTP LLQ) Extremities: No clubbing, No cyanosis Skin: No rashes, No breakdown Labs Labs: Laboratory Tests Test 03/05/20 03:40 White Blood Count 13.0 x10^3/uL (4.0-11.0) Red Blood Count 4.09 x10^6/uL (3.50-5.40) Hemoglobin 12.2 g/dL (12.0-15.5) Hematocrit 36.0 % (36.0-47.0) Mean Corpuscular Volume 88 fL (79-100) Mean Corpuscular Hemoglobin 30 pg (25-35) Mean Corpuscular Hemoglobin Concent 34 g/dL (31-37) Red Cell Distribution Width 17.4 % (11.5-14.5) Platelet Count 160 x10^3/uL (140-400) Neutrophils (%) (Auto) 91 % (31-73) Lymphocytes (%) (Auto) 3 % (24-48) Monocytes (%) (Auto) 6 % (0-9) Eosinophils (%) (Auto) 0 % (0-3) Basophils (%) (Auto) 0 % (0-3) Neutrophils # (Auto) 11.9 x10^3/uL (1.8-7.7) Lymphocytes # (Auto) 0.3 x10^3/uL (1.0-4.8) Monocytes # (Auto) 0.8 x10^3/uL (0.0-1.1) Eosinophils # (Auto) 0.0 x10^3/uL (0.0-0.7) Basophils # (Auto) 0.0 x10^3/uL (0.0-0.2) Sodium Level 139 mmol/L (136-145) Potassium Level 3.1 mmol/L (3.5-5.1) Chloride Level 104 mmol/L (98-107) Carbon Dioxide Level 25 mmol/L (21-32) Anion Gap 10 (6-14) Blood Urea Nitrogen 13 mg/dL (7-20) Creatinine 0.7 mg/dL (0.6-1.0) Estimated GFR (Cockcroft-Gault) 85.6 Glucose Level 88 mg/dL (70-99) Calcium Level 7.8 mg/dL (8.5-10.1) C-Reactive Protein, Quantitative 158.5 mg/L (0-3.3) Comment Review of Relevant I have reviewed the following items georgina (where applicable) has been applied. Medications: Current Medications Medications (Trade) Dose Ordered Sig/Cristiane Route PRN Reason Start Time Stop Time Status Last Admin Dose Admin Lidocaine HCl (Buffered Lidocaine 1%) 3 ml 1X ONCE IJ 03/04/20 14:00 03/04/20 14:01 DC 03/04/20 14:00 Midazolam HCl (Versed) 5 mg 1X ONCE IV 03/04/20 14:00 03/04/20 14:01 DC 03/04/20 14:00 Fentanyl Citrate (Fentanyl 2ml Vial) 100 mcg 1X ONCE IV 03/04/20 14:00 03/04/20 14:01 DC 03/04/20 14:00 Potassium Chloride (Klor-Con) 40 meq TIDAC PO 03/05/20 08:30 03/05/20 09:28 Justifications for Admission Other Justification LEONIE GUTIERREZ MD Mar 05, 2020 10:17
[2020-03-05 11:03] VITALS: BP 110/58
--- NOTE | 2020-03-05 11:17 | PDOC ---
PROGRESS NOTES Date of Service DATE: 03/05/20 TIME: 11:16 Subjective Subjective states pain is improving, asking for something to drink Objective Objective Vital Signs Date Time Temp Pulse Resp B/P (MAP) Pulse Ox O2 Delivery O2 Flow Rate FiO2 03/05/20 11:03 98.0 73 18 110/58 (75) 96 Nasal Cannula 3.0 98.0 Intake and Output 03/05/20 07:00 Intake Total 1100 ml Output Total 525 ml Balance 575 ml Intake Oral 0 ml IV Total 1100 ml Output Urine Total 400 ml Emesis 50 ml Drainage Total 75 ml Physical Exam Physical Exam exam deferred due to covid status Assessment Assessment Diverticulitis, s/p drain placement Plan Plan of Care Try clears Comment Review of Relevant I have reviewed the following items georgina (where applicable) has been applied. Labs Laboratory Tests Test 03/04/20 03:15 03/04/20 09:30 03/05/20 03:40 White Blood Count 11.3 x10^3/uL (4.0-11.0) 13.0 x10^3/uL (4.0-11.0) Red Blood Count 4.03 x10^6/uL (3.50-5.40) 4.09 x10^6/uL (3.50-5.40) Hemoglobin 11.9 g/dL (12.0-15.5) 12.2 g/dL (12.0-15.5) Hematocrit 35.5 % (36.0-47.0) 36.0 % (36.0-47.0) Mean Corpuscular Volume 88 fL (79-100) 88 fL (79-100) Mean Corpuscular Hemoglobin 30 pg (25-35) 30 pg (25-35) Mean Corpuscular Hemoglobin Concent 34 g/dL (31-37) 34 g/dL (31-37) Red Cell Distribution Width 19.4 % (11.5-14.5) 17.4 % (11.5-14.5) Platelet Count 183 x10^3/uL (140-400) 160 x10^3/uL (140-400) Neutrophils (%) (Auto) 90 % (31-73) 91 % (31-73) Lymphocytes (%) (Auto) 6 % (24-48) 3 % (24-48) Monocytes (%) (Auto) 3 % (0-9) 6 % (0-9) Eosinophils (%) (Auto) 1 % (0-3) 0 % (0-3) Basophils (%) (Auto) 0 % (0-3) 0 % (0-3) Neutrophils # (Auto) 10.2 x10^3/uL (1.8-7.7) 11.9 x10^3/uL (1.8-7.7) Lymphocytes # (Auto) 0.7 x10^3/uL (1.0-4.8) 0.3 x10^3/uL (1.0-4.8) Monocytes # (Auto) 0.4 x10^3/uL (0.0-1.1) 0.8 x10^3/uL (0.0-1.1) Eosinophils # (Auto) 0.1 x10^3/uL (0.0-0.7) 0.0 x10^3/uL (0.0-0.7) Basophils # (Auto) 0.0 x10^3/uL (0.0-0.2) 0.0 x10^3/uL (0.0-0.2) Sodium Level 137 mmol/L (136-145) 139 mmol/L (136-145) Potassium Level 3.4 mmol/L (3.5-5.1) 3.1 mmol/L (3.5-5.1) Chloride Level 103 mmol/L (98-107) 104 mmol/L (98-107) Carbon Dioxide Level 27 mmol/L (21-32) 25 mmol/L (21-32) Anion Gap 7 (6-14) 10 (6-14) Blood Urea Nitrogen 13 mg/dL (7-20) 13 mg/dL (7-20) Creatinine 0.6 mg/dL (0.6-1.0) 0.7 mg/dL (0.6-1.0) Estimated GFR (Cockcroft-Gault) 102.3 85.6 Glucose Level 82 mg/dL (70-99) 88 mg/dL (70-99) Calcium Level 7.9 mg/dL (8.5-10.1) 7.8 mg/dL (8.5-10.1) C-Reactive Protein, Quantitative 156.2 mg/L (0-3.3) 158.5 mg/L (0-3.3) Prothrombin Time 13.6 SEC (11.7-14.0) Prothromb Time International Ratio 1.1 (0.8-1.1) Laboratory Tests Test 03/05/20 03:40 White Blood Count 13.0 x10^3/uL (4.0-11.0) Red Blood Count 4.09 x10^6/uL (3.50-5.40) Hemoglobin 12.2 g/dL (12.0-15.5) Hematocrit 36.0 % (36.0-47.0) Mean Corpuscular Volume 88 fL (79-100) Mean Corpuscular Hemoglobin 30 pg (25-35) Mean Corpuscular Hemoglobin Concent 34 g/dL (31-37) Red Cell Distribution Width 17.4 % (11.5-14.5) Platelet Count 160 x10^3/uL (140-400) Neutrophils (%) (Auto) 91 % (31-73) Lymphocytes (%) (Auto) 3 % (24-48) Monocytes (%) (Auto) 6 % (0-9) Eosinophils (%) (Auto) 0 % (0-3) Basophils (%) (Auto) 0 % (0-3) Neutrophils # (Auto) 11.9 x10^3/uL (1.8-7.7) Lymphocytes # (Auto) 0.3 x10^3/uL (1.0-4.8) Monocytes # (Auto) 0.8 x10^3/uL (0.0-1.1) Eosinophils # (Auto) 0.0 x10^3/uL (0.0-0.7) Basophils # (Auto) 0.0 x10^3/uL (0.0-0.2) Sodium Level 139 mmol/L (136-145) Potassium Level 3.1 mmol/L (3.5-5.1) Chloride Level 104 mmol/L (98-107) Carbon Dioxide Level 25 mmol/L (21-32) Anion Gap 10 (6-14) Blood Urea Nitrogen 13 mg/dL (7-20) Creatinine 0.7 mg/dL (0.6-1.0) Estimated GFR (Cockcroft-Gault) 85.6 Glucose Level 88 mg/dL (70-99) Calcium Level 7.8 mg/dL (8.5-10.1) C-Reactive Protein, Quantitative 158.5 mg/L (0-3.3) Medications Current Medications Ringer's Solution 1,000 ml @ 100 mls/hr Q10H IV Last administered on 03/02/20at 21:13; Start 03/01/20 at 22:00; Stop 03/03/20 at 09:45; Status DC Acetaminophen (Tylenol) 650 mg PRN Q6HRS PRN PO TEMP/MILD PAIN; Start 03/01/20 at 22:00 Morphine Sulfate (Morphine Sulfate) 2 mg PRN Q3HRS PRN IV PAIN Last administered on 03/02/20at 06:04; Start 03/01/20 at 22:00; Stop 03/02/20 at 08:09; Status DC Piperacillin Sod/ Tazobactam Sod 4.5 gm/Sodium Chloride 100 ml @ 200 mls/hr Q6HRS IV Last administered on 03/02/20at 06:05; Start 03/02/20 at 00:00; Stop 03/02/20 at 10:11; Status DC Morphine Sulfate (Morphine Sulfate) 2 mg PRN Q2HR PRN IV PAIN Last administered on 03/02/20at 18:09; Start 03/02/20 at 08:15; Stop 03/02/20 at 18:29; Status DC Oxycodone/ Acetaminophen (Percocet 10/325) 1 tab PRN Q6HRS PRN PO MODERATE- SEVERE PAIN Last administered on 03/04/20at 01:00; Start 03/02/20 at 08:15 Lactobacillus Rhamnosus (Culturelle) 1 cap BID PO Last administered on 03/05/20at 09:28; Start 03/02/20 at 21:00 Piperacillin Sod/ Tazobactam Sod 3.375 gm/Sodium Chloride 50 ml @ 100 mls/hr Q6HRS IV Last administered on 03/05/20at 04:57; Start 03/02/20 at 12:00 Pantoprazole Sodium (PROTONIX VIAL for IV PUSH) 40 mg DAILYAC IVP Last administered on 03/05/20at 09:28; Start 03/03/20 at 07:30 Naloxone HCl (Narcan) 0.4 mg PRN Q2MIN PRN IV SEE INSTRUCTIONS; Start 03/02/20 at 18:30 Sodium Chloride 1,000 ml @ 25 mls/hr Q24H IV Last administered on 03/02/20at 21:12; Start 03/02/20 at 19:00 Hydromorphone HCl 30 ml @ 0 mls/hr CONT PRN PRN IV PER PROTOCOL Last administered on 03/02/20at 19:15; Start 03/02/20 at 19:00 Sodium Chloride 1,000 ml @ 75 mls/hr [id number] IV Last administered on 03/04/20at 21:16; Start 03/03/20 at 09:45 Metronidazole 100 ml @ 100 mls/hr Q8HRS IV Last administered on 03/05/20at 05:36; Start 03/03/20 at 12:00 Prednisone (Prednisone) 10 mg DAILY PO Last administered on 03/05/20at 09:28; Start 03/03/20 at 17:00 Ascorbic Acid (Vitamin C) 1,000 mg DAILY PO Last administered on 03/04/20at 16:08; Start 03/03/20 at 17:00 Vitamin D (Vitamin D3) 5,000 unit DAILY PO Last administered on 03/05/20 09:28; Start 03/03/20 at 17:00 Zinc Sulfate (Orazinc) 220 mg DAILY PO Last administered on 03/05/20at 09:28; Start 03/03/20 at 17:00 Lidocaine HCl (Buffered Lidocaine 1%) 3 ml STK-MED ONCE .ROUTE ; Start 03/04/20 at 12:48; Stop 03/04/20 at 12:49; Status DC Midazolam HCl (Versed) 5 mg STK-MED ONCE .ROUTE ; Start 03/04/20 at 13:05; Stop 03/04/20 at 13:05; Status DC Fentanyl Citrate (Fentanyl 2ml Vial) 100 mcg STK-MED ONCE .ROUTE ; Start 03/04/20 at 13:05; Stop 03/04/20 at 13:05; Status DC Lidocaine HCl (Buffered Lidocaine 1%) 3 ml 1X ONCE IJ Last administered on 03/04/20at 14:00; Start 03/04/20 at 14:00; Stop 03/04/20 at 14:01; Status DC Midazolam HCl (Versed) 5 mg 1X ONCE IV Last administered on 03/04/20at 14:00; Start 03/04/20 at 14:00; Stop 03/04/20 at 14:01; Status DC Fentanyl Citrate (Fentanyl 2ml Vial) 100 mcg 1X ONCE IV Last administered on 03/04/20at 14:00; Start 03/04/20 at 14:00; Stop 03/04/20 at 14:01; Status DC Potassium Chloride (Klor-Con) 40 meq TIDAC PO Last administered on 03/05/20at 09:28; Start 03/05/20 at 08:30 Active Scripts Active Reported Zinc 50 Mg Tablet 30 Mg PO DAILY D3-50 (Cholecalciferol (Vitamin D3)) 50,000 Unit Capsule 5,000 Unit PO DAILY Vitamin C (Ascorbic Acid) 500 Mg Capsule.er 2 Cap PO DAILY 30 Days Prednisone 20 Mg Tablet 10 Mg PO DAILY Omeprazole 40 Mg Capsule.dr 1 Cap PO DAILY Vitals/I & O Vital Sign - Last 24 Hours 03/04/20 03/04/20 03/04/20 03/04/20 13:32 13:37 13:40 13:42 Pulse 80 78 78 80 Resp 12 12 14 Pulse Ox 95 95 95 95 O2 Delivery Nasal Cannula Nasal Cannula Nasal Cannula Nasal Cannula O2 Flow Rate 4.0 4.0 4.0 4.0 03/04/20 03/04/20 03/04/20 03/04/20 13:47 13:52 13:58 14:00 Pulse 81 82 89 Resp 13 15 19 21 Pulse Ox 95 94 94 95 O2 Delivery Nasal Cannula Nasal Cannula Nasal Cannula Nasal Cannula O2 Flow Rate 4.0 4.0 2.0 4.0 03/04/20 03/04/20 03/04/20 03/04/20 14:30 19:00 20:04 23:00 Temp 100.7 99.7 100.7 99.7 Pulse 109 92 Resp 15 18 B/P (MAP) 101/61 (74) 105/59 (74) Pulse Ox 93 93 O2 Delivery Nasal Cannula Nasal Cannula Nasal Cannula Nasal Cannula O2 Flow Rate 2.0 2.0 2.0 03/05/20 03/05/20 03/05/20 02:53 07:00 11:03 Temp 97.8 98.0 98.0 97.8 98.0 98.0 Pulse 93 80 73 Resp 18 18 18 B/P (MAP) 97/48 (64) 97/46 (63) 110/58 (75) Pulse Ox 94 96 96 O2 Delivery Nasal Cannula Nasal Cannula Nasal Cannula O2 Flow Rate 3.0 3.0 3.0 Intake and Output 03/04/20 03/04/20 03/05/20 15:00 23:00 07:00 Intake Total 100 ml 1000 ml Output Total 40 ml 485 ml Balance 60 ml 515 ml Justifications for Admission Other Justification KRISTI LINDQUIST MD Mar 05, 2020 11:17
[2020-03-05 14:48] VITALS: BP 95/49
[2020-03-05] MEDS: IV NORMAL SALINE 1000ML BAG 1,000 ML IV SCH (14:56)
[2020-03-05 19:00] VITALS: BP 116/65
[2020-03-05 23:00] VITALS: BP 128/65
[2020-03-06] MEDS: oxyCODONE/APAP 10/325 1 TAB TABLET PO PRN ×4 (02:53→23:51)
[2020-03-06 03:00] VITALS: BP 132/74
[2020-03-06 03:35] LABS: BASO # 0.1 x10^3/uL (0.0-0.2); BASO % 1 % (0-3); EOS # 0.1 x10^3/uL (0.0-0.7); EOS % 1 % (0-3); HEMATOCRIT 34.9 % (36.0-47.0); HEMOGLOBIN 11.8 g/dL (12.0-15.5); LYMPH # 0.8 x10^3/uL (1.0-4.8); LYMPH % 7 % (24-48); MEAN CORPUSCULAR HEMOGLOBIN 30 pg (25-35); MEAN CORPUSCULAR HGB CONC 34 g/dL (31-37); MEAN CORPUSCULAR VOLUME 88 fL (79-100); MONO # 0.9 x10^3/uL (0.0-1.1); MONO % 8 % (0-9); NEUT # 9.1 x10^3/uL (1.8-7.7); NEUT % 83 % (31-73); PLATELET COUNT 137 x10^3/uL (140-400); RED BLOOD COUNT 3.97 x10^6/uL (3.50-5.40); RED CELL DISTRIBUTION WIDTH 19.1 % (11.5-14.5); WHITE BLOOD COUNT 10.9 x10^3/uL (4.0-11.0)
[2020-03-06 03:49] LABS: CALCIUM 8.4 mg/dL (8.5-10.1); CREATININE 0.5 mg/dL (0.6-1.0); GFR 126.3; POTASSIUM 3.9 mmol/L (3.5-5.1)
[2020-03-06] MEDS: PIPERACILLIN/TAZOBACTAM 3.375 GM in IV NORMAL SALINE 50ML 50 ML IV SCH ×5 (05:21→23:52)
[2020-03-06 07:25] VITALS: BP 118/56
[2020-03-06] MEDS: ZINC SULFATE 220 MG CAPSULE. PO SCH (08:49)
[2020-03-06] MEDS: LACTOBACILLUS RHAMNOSUS GG 1 CAPSULE. PO SCH ×2 (08:49→21:10)
[2020-03-06] MEDS: ASCORBIC ACID 500 MG TABLET PO SCH (08:49)
[2020-03-06] MEDS: CHOLECALCIFEROL (VITAMIN D3) 5,000 UNIT CAPSULE PO SCH (08:49)
[2020-03-06] MEDS: POTASSIUM CHLORIDE 20 MEQ TABLET.ER. PO SCH (08:50)
[2020-03-06] MEDS: predniSONE 10 MG TABLET PO SCH (08:50)
[2020-03-06] MEDS: PANTOPRAZOLE IV PUSH 40 MG VIAL. IVP SCH (08:50)
[2020-03-06] MEDS: IV NORMAL SALINE 1000ML BAG 1,000 ML IV SCH ×2 (08:51→17:45)
--- NOTE | 2020-03-06 10:19 | PDOC ---
[employer] [facility] PROGRESS NOTE Date of Service DOS: DATE: 03/06/20 TIME: 10:18 Chief Complaint Chief Complaint COVID-19 infection Abdominal pain due to acute diverticulitis with uncontained perforation with developing abscess status post perirectal IR drain 03/04/2020 History of rheumatoid arthritis Hypokalemia A/P: Appreciate surgical recommendationssuccessful IR drainage, no surgical intervention at this time Appreciate GI recommendationspending recommendations to advance diet Continue IV Zosyn Serial abdominal exams Keep n.p.o. with sips with meds until passing flatus Lovenox for DVT prophylaxis Clear liquid diet Full code Discussed with RN and SW Disposition inpatient care as above Surrogate decision maker is History of Present Illness History of Present Illness 03/06/2020 No acute events overnight. Patient seen and examined bedside. LYNNE drain with 20 cc purulent drainage. Pain is improved. ESR is improving. Patient's chart, labs, images were reviewed and discussed with RN 03/05/2020 No acute events overnight. Patient is feeling much better after drain is placed. Pain is controlled. Patient would like to eat something at this time. Patient's chart, labs, images were reviewed and discussed with RN 03/04/2020 No acute events overnight. Patient is tearful with the way she has been treated this current hospital. She felt she is neglected and no one is really informing her about her situation. It was discussed in detail again her the current plan with her developing abscesses and at that a interventional drain will need to be placed. It was also explained in great detail of the drain would not drain out entirely all her abscesses and that would lead to a more invasive surgical intervention. Patient expressed understanding and will continue to work with us for further management. 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 We will keep her on strict n.p.o. until she has more return of bowel function. Patient's chart, labs, images were reviewed and discussed with RN Patient is a 59-year-old female with past medical history of rheumatoid arthritis and diverticulosis which she presents with lower quadrant abdominal pain aching, 10 out of 10, nonradiating, constant. Patient states that she developed this pain that started on Saturday after she had [place] fries and biscuits. She did not have any fibers or fruits. She states she is normally fairly regular with normal bowel movements daily. She has been constipated for approximately 4 days. Her last bowel movement was mucousy and small but no blood. Denies fevers, cough, shortness of breath, chest pain, dysuria, bloody stools. Of note, patient was also found at [facility] ER to be COVID positive. Dr. Glaser from general surgery was consulted at the time and only recommended IV antibiotics, keep patient n.p.o., and that the patient did not need any surgical intervention at that time. Patient was transferred here for higher level of c are. 03/03/2020 Patient evaluated bedside. No acute events overnight. Chart and labs reviewed, discussed with RN. Confined perforation, no urgent intervention needed. May need percutaneous drainage or surgery eventually. Continue antibiotics for now. Add Flagyl for anaerobic coverage. Will consult general surgery for evaluation. Vitals/I&O Vitals/I&O: Vital Signs Date Time Temp Pulse Resp B/P (MAP) Pulse Ox O2 Delivery O2 Flow Rate FiO2 03/06/20 08:49 18 98 Nasal Cannula 3.0 03/06/20 07:25 97.9 62 118/56 (76) 97.9 I & O 03/05/20 03/05/20 03/06/20 15:00 23:00 07:00 Intake Total 170 ml 900 ml Output Total 10 ml 30 ml 15 ml Balance -10 ml 140 ml 885 ml Physical Exam Physical Exam: GEN: No apparent distress. Alert and oriented HEENT: Normal cephalic, atraumatic, external auditory canals are patent NECK: Supple, no JVD, no thyromegaly was noted LUNGS: Bilateral clear HEART: RRR, S1, S2 present. Peripheral pulses intact, no obvious murmurs noted ABDOMEN: Soft, nontender. Positive bowel sounds, no organomegaly, normal bowel sounds EXTREMITIES: Without clubbing, cyanosis, or edema. Pedal pulses intact. Nega tive Homans sign General: Alert, Oriented X3, Cooperative, mild distress Heart: Regular rate Lungs: Clear Abdomen: Soft, Other (obese, min TTP LLQ) Extremities: No clubbing, No cyanosis Skin: No rashes, No breakdown Labs Labs: Laboratory Tests Test 03/06/20 03:00 03/06/20 03:30 Sodium Level 139 mmol/L (136-145) Potassium Level 3.9 mmol/L (3.5-5.1) Chloride Level 107 mmol/L (98-107) Carbon Dioxide Level 21 mmol/L (21-32) Anion Gap 11 (6-14) Blood Urea Nitrogen 11 mg/dL (7-20) Creatinine 0.5 mg/dL (0.6-1.0) Estimated GFR (Cockcroft-Gault) 126.3 Glucose Level 89 mg/dL (70-99) Calcium Level 8.4 mg/dL (8.5-10.1) C-Reactive Protein, Quantitative 126.0 mg/L (0-3.3) White Blood Count 10.9 x10^3/uL (4.0-11.0) Red Blood Count 3.97 x10^6/uL (3.50-5.40) Hemoglobin 11.8 g/dL (12.0-15.5) Hematocrit 34.9 % (36.0-47.0) Mean Corpuscular Volume 88 fL (79-100) Mean Corpuscular Hemoglobin 30 pg (25-35) Mean Corpuscular Hemoglobin Concent 34 g/dL (31-37) Red Cell Distribution Width 19.1 % (11.5-14.5) Platelet Count 137 x10^3/uL (140-400) Neutrophils (%) (Auto) 83 % (31-73) Lymphocytes (%) (Auto) 7 % (24-48) Monocytes (%) (Auto) 8 % (0-9) Eosinophils (%) (Auto) 1 % (0-3) Basophils (%) (Auto) 1 % (0-3) Neutrophils # (Auto) 9.1 x10^3/uL (1.8-7.7) Lymphocytes # (Auto) 0.8 x10^3/uL (1.0-4.8) Monocytes # (Auto) 0.9 x10^3/uL (0.0-1.1) Eosinophils # (Auto) 0.1 x10^3/uL (0.0-0.7) Basophils # (Auto) 0.1 x10^3/uL (0.0-0.2) Comment Review of Relevant I have reviewed the following items georgina (where applicable) has been applied. Justifications for Admission Other Justification LEONIE GUTIERREZ MD Mar 06, 2020 10:19
[2020-03-06 11:24] VITALS: BP 126/82
--- NOTE | 2020-03-06 11:49 | PDOC ---
PROGRESS NOTES Date of Service DATE: 03/06/20 TIME: 11:48 Subjective Subjective much improved, tolerated clears Objective Objective Vital Signs Date Time Temp Pulse Resp B/P (MAP) Pulse Ox O2 Delivery O2 Flow Rate FiO2 03/06/20 11:24 98.2 72 18 126/82 (97) 94 Room Air 98.2 03/06/20 09:49 3.0 Intake and Output 03/06/20 07:00 Intake Total 1070 ml Output Total 55 ml Balance 1015 ml Intake Oral 170 ml IV Total 900 ml Drainage Total 55 ml # Voids 7 # Bowel Movements 3 Physical Exam Abdomen: Soft (minimal tenderness, drain intact) Extremities: No clubbing General: Alert, Oriented X3, Cooperative HEENT: Atraumatic Neuro: Normal speech Psych/Mental Status: Mental status NL Assessment Assessment Diverticulitis Plan Plan of Care Improving with abx, drainage; full liquids Comment Review of Relevant I have reviewed the following items georgina (where applicable) has been applied. Labs Laboratory Tests Test 03/05/20 03:40 03/06/20 03:00 03/06/20 03:30 White Blood Count 13.0 x10^3/uL (4.0-11.0) 10.9 x10^3/uL (4.0-11.0) Red Blood Count 4.09 x10^6/uL (3.50-5.40) 3.97 x10^6/uL (3.50-5.40) Hemoglobin 12.2 g/dL (12.0-15.5) 11.8 g/dL (12.0-15.5) Hematocrit 36.0 % (36.0-47.0) 34.9 % (36.0-47.0) Mean Corpuscular Volume 88 fL (79-100) 88 fL (79-100) Mean Corpuscular Hemoglobin 30 pg (25-35) 30 pg (25-35) Mean Corpuscular Hemoglobin Concent 34 g/dL (31-37) 34 g/dL (31-37) Red Cell Distribution Width 17.4 % (11.5-14.5) 19.1 % (11.5-14.5) Platelet Count 160 x10^3/uL (140-400) 137 x10^3/uL (140-400) Neutrophils (%) (Auto) 91 % (31-73) 83 % (31-73) Lymphocytes (%) (Auto) 3 % (24-48) 7 % (24-48) Monocytes (%) (Auto) 6 % (0-9) 8 % (0-9) Eosinophils (%) (Auto) 0 % (0-3) 1 % (0-3) Basophils (%) (Auto) 0 % (0-3) 1 % (0-3) Neutrophils # (Auto) 11.9 x10^3/uL (1.8-7.7) 9.1 x10^3/uL (1.8-7.7) Lymphocytes # (Auto) 0.3 x10^3/uL (1.0-4.8) 0.8 x10^3/uL (1.0-4.8) Monocytes # (Auto) 0.8 x10^3/uL (0.0-1.1) 0.9 x10^3/uL (0.0-1.1) Eosinophils # (Auto) 0.0 x10^3/uL (0.0-0.7) 0.1 x10^3/uL (0.0-0.7) Basophils # (Auto) 0.0 x10^3/uL (0.0-0.2) 0.1 x10^3/uL (0.0-0.2) Sodium Level 139 mmol/L (136-145) 139 mmol/L (136-145) Potassium Level 3.1 mmol/L (3.5-5.1) 3.9 mmol/L (3.5-5.1) Chloride Level 104 mmol/L (98-107) 107 mmol/L (98-107) Carbon Dioxide Level 25 mmol/L (21-32) 21 mmol/L (21-32) Anion Gap 10 (6-14) 11 (6-14) Blood Urea Nitrogen 13 mg/dL (7-20) 11 mg/dL (7-20) Creatinine 0.7 mg/dL (0.6-1.0) 0.5 mg/dL (0.6-1.0) Estimated GFR (Cockcroft-Gault) 85.6 126.3 Glucose Level 88 mg/dL (70-99) 89 mg/dL (70-99) Calcium Level 7.8 mg/dL (8.5-10.1) 8.4 mg/dL (8.5-10.1) C-Reactive Protein, Quantitative 158.5 mg/L (0-3.3) 126.0 mg/L (0-3.3) Laboratory Tests Test 03/06/20 03:00 03/06/20 03:30 Sodium Level 139 mmol/L (136-145) Potassium Level 3.9 mmol/L (3.5-5.1) Chloride Level 107 mmol/L (98-107) Carbon Dioxide Level 21 mmol/L (21-32) Anion Gap 11 (6-14) Blood Urea Nitrogen 11 mg/dL (7-20) Creatinine 0.5 mg/dL (0.6-1.0) Estimated GFR (Cockcroft-Gault) 126.3 Glucose Level 89 mg/dL (70-99) Calcium Level 8.4 mg/dL (8.5-10.1) C-Reactive Protein, Quantitative 126.0 mg/L (0-3.3) White Blood Count 10.9 x10^3/uL (4.0-11.0) Red Blood Count 3.97 x10^6/uL (3.50-5.40) Hemoglobin 11.8 g/dL (12.0-15.5) Hematocrit 34.9 % (36.0-47.0) Mean Corpuscular Volume 88 fL (79-100) Mean Corpuscular Hemoglobin 30 pg (25-35) Mean Corpuscular Hemoglobin Concent 34 g/dL (31-37) Red Cell Distribution Width 19.1 % (11.5-14.5) Platelet Count 137 x10^3/uL (140-400) Neutrophils (%) (Auto) 83 % (31-73) Lymphocytes (%) (Auto) 7 % (24-48) Monocytes (%) (Auto) 8 % (0-9) Eosinophils (%) (Auto) 1 % (0-3) Basophils (%) (Auto) 1 % (0-3) Neutrophils # (Auto) 9.1 x10^3/uL (1.8-7.7) Lymphocytes # (Auto) 0.8 x10^3/uL (1.0-4.8) Monocytes # (Auto) 0.9 x10^3/uL (0.0-1.1) Eosinophils # (Auto) 0.1 x10^3/uL (0.0-0.7) Basophils # (Auto) 0.1 x10^3/uL (0.0-0.2) Medications Current Medications Ringer's Solution 1,000 ml @ 100 mls/hr Q10H IV Last administered on 03/02/20 21:13; Start 03/01/20 at 22:00; Stop 03/03/20 at 09:45; Status DC Acetaminophen (Tylenol) 650 mg PRN Q6HRS PRN PO TEMP/MILD PAIN Last administered on 03/05/20at 14:48; Start 03/01/20 at 22:00 Morphine Sulfate (Morphine Sulfate) 2 mg PRN Q3HRS PRN IV PAIN Last administered on 03/02/20at 06:04; Start 03/01/20 at 22:00; Stop 03/02/20 at 08:09; Status DC Piperacillin Sod/ Tazobactam Sod 4.5 gm/Sodium Chloride 100 ml @ 200 mls/hr Q6HRS IV Last administered on 03/02/20at 06:05; Start 03/02/20 at 00:00; Stop 03/02/20 at 10:11; Status DC Morphine Sulfate (Morphine Sulfate) 2 mg PRN Q2HR PRN IV PAIN Last administered on 03/02/20at 18:09; Start 03/02/20 at 08:15; Stop 03/02/20 at 18:29; Status DC Oxycodone/ Acetaminophen (Percocet 10/325) 1 tab PRN Q6HRS PRN PO MODERATE- SEVERE PAIN Last administered on 03/06/20at 08:49; Start 03/02/20 at 08:15 Lactobacillus Rhamnosus (Culturelle) 1 cap BID PO Last administered on 03/06/20 08:49; Start 03/02/20 at 21:00 Piperacillin Sod/ Tazobactam Sod 3.375 gm/Sodium Chloride 50 ml @ 100 mls/hr Q6HRS IV Last administered on 03/06/20at 11:45; Start 03/02/20 at 12:00 Pantoprazole Sodium (PROTONIX VIAL for IV PUSH) 40 mg DAILYAC IVP Last administered on 03/06/20at 08:50; Start 03/03/20 at 07:30 Naloxone HCl (Narcan) 0.4 mg PRN Q2MIN PRN IV SEE INSTRUCTIONS; Start 03/02/20 at 18:30 Sodium Chloride 1,000 ml @ 25 mls/hr Q24H IV Last administered on 03/02/20at 21:12; Start 03/02/20 at 19:00; Stop 03/06/20 at 11:21; Status DC Hydromorphone HCl 30 ml @ 0 mls/hr CONT PRN PRN IV PER PROTOCOL Last administered on 03/02/20at 19:15; Start 03/02/20 at 19:00 Sodium Chloride 1,000 ml @ 75 mls/hr [id number] IV Last administered on 03/06/20at 08:51; Start 03/03/20 at 09:45 Metronidazole 100 ml @ 100 mls/hr Q8HRS IV Last administered on 03/06/20at 06:26; Start 03/03/20 at 12:00 Prednisone (Prednisone) 10 mg DAILY PO Last administered on 03/06/20at 08:50; Start 03/03/20 at 17:00 Ascorbic Acid (Vitamin C) 1,000 mg DAILY PO Last administered on 03/06/20at 08:49; Start 03/03/20 at 17:00 Vitamin D (Vitamin D3) 5,000 unit DAILY PO Last administered on 03/06/20at 08:49; Start 03/03/20 at 17:00 Zinc Sulfate (Orazinc) 220 mg DAILY PO Last administered on 03/06/20at 08:49; Start 03/03/20 at 17:00 Lidocaine HCl (Buffered Lidocaine 1%) 3 ml STK-MED ONCE .ROUTE ; Start 03/04/20 at 12:48; Stop 03/04/20 at 12:49; Status DC Midazolam HCl (Versed) 5 mg STK-MED ONCE .ROUTE ; Start 03/04/20 at 13:05; Stop 03/04/20 at 13:05; Status DC Fentanyl Citrate (Fentanyl 2ml Vial) 100 mcg STK-MED ONCE .ROUTE ; Start 03/04/20 at 13:05; Stop 03/04/20 at 13:05; Status DC Lidocaine HCl (Buffered Lidocaine 1%) 3 ml 1X ONCE IJ Last administered on 03/04/20at 14:00; Start 03/04/20 at 14:00; Stop 03/04/20 at 14:01; Status DC Midazolam HCl (Versed) 5 mg 1X ONCE IV Last administered on 03/04/20at 14:00; Start 03/04/20 at 14:00; Stop 03/04/20 at 14:01; Status DC Fentanyl Citrate (Fentanyl 2ml Vial) 100 mcg 1X ONCE IV Last administered on 03/04/20at 14:00; Start 03/04/20 at 14:00; Stop 03/04/20 at 14:01; Status DC Potassium Chloride (Klor-Con) 40 meq TIDAC PO Last administered on 03/06/20at 08:50; Start 03/05/20 at 08:30; Stop 03/06/20 at 11:30; Status DC Active Scripts Active Reported Zinc 50 Mg Tablet 30 Mg PO DAILY D3-50 (Cholecalciferol (Vitamin D3)) 50,000 Unit Capsule 5,000 Unit PO DAILY Vitamin C (Ascorbic Acid) 500 Mg Capsule.er 2 Cap PO DAILY 30 Days Prednisone 20 Mg Tablet 10 Mg PO DAILY Omeprazole 40 Mg Capsule.dr 1 Cap PO DAILY Vitals/I & O Vital Sign - Last 24 Hours 03/05/20 03/05/20 03/05/20 03/05/20 14:48 19:00 19:54 23:00 Temp 97.7 98.4 97.9 97.7 98.4 97.9 Pulse 78 75 72 Resp 20 18 18 B/P (MAP) 95/49 (64) 116/65 (82) 128/65 (86) Pulse Ox 98 95 96 O2 Delivery Nasal Cannula Nasal Cannula Nasal Cannula Nasal Cannula O2 Flow Rate 3.0 3.0 3.0 3.0 03/06/20 03/06/20 03/06/20 03/06/20 02:53 03:00 04:00 07:25 Temp 97.5 97.9 97.5 97.9 Pulse 72 62 Resp 16 18 16 18 B/P (MAP) 132/74 (93) 118/56 (76) Pulse Ox 96 98 O2 Delivery Room Air Nasal Cannula Room Air Nasal Cannula O2 Flow Rate 3.0 3.0 03/06/20 03/06/20 03/06/20 03/06/20 08:00 08:49 09:49 11:24 Temp 98.2 98.2 Pulse 72 Resp 18 18 18 B/P (MAP) 126/82 (97) Pulse Ox 98 98 94 O2 Delivery Room Air Nasal Cannula Room Air Room Air O2 Flow Rate 3.0 3.0 3.0 Intake and Output 03/05/20 03/05/20 03/06/20 15:00 23:00 07:00 Intake Total 170 ml 900 ml Output Total 10 ml 30 ml 15 ml Balance -10 ml 140 ml 885 ml Justifications for Admission Other Justification KRISTI LINDQUIST MD Mar 06, 2020 11:49
[2020-03-06 15:06] VITALS: BP 122/82
[2020-03-06 19:00] VITALS: BP 129/74
[2020-03-06 23:00] VITALS: BP 139/91
[2020-03-07 03:00] VITALS: BP 129/82
[2020-03-07 04:55] LABS: BASO % 0 % (0-3); EOS % 0 % (0-3); HEMOGLOBIN 11.8 g/dL (12.0-15.5); LYMPH # 0.8 x10^3/uL (1.0-4.8); LYMPH % 9 % (24-48); MEAN CORPUSCULAR HEMOGLOBIN 30 pg (25-35); MEAN CORPUSCULAR HGB CONC 34 g/dL (31-37); MEAN CORPUSCULAR VOLUME 88 fL (79-100); MONO # 0.7 x10^3/uL (0.0-1.1); MONO % 8 % (0-9); NEUT # 7.6 x10^3/uL (1.8-7.7); NEUT % 83 % (31-73); PLATELET COUNT 153 x10^3/uL (140-400); RED BLOOD COUNT 3.97 x10^6/uL (3.50-5.40); RED CELL DISTRIBUTION WIDTH 16.3 % (11.5-14.5); WHITE BLOOD COUNT 9.1 x10^3/uL (4.0-11.0)
[2020-03-07] MEDS: IV NORMAL SALINE 1000ML BAG 1,000 ML IV SCH ×2 (05:05→21:26)
[2020-03-07 05:09] LABS: C-REACTIVE PROTEIN 64.3 mg/L (0-3.3); CALCIUM 8.4 mg/dL (8.5-10.1); CREATININE 0.5 mg/dL (0.6-1.0); GFR 126.3; POTASSIUM 3.7 mmol/L (3.5-5.1)
[2020-03-07] MEDS: PIPERACILLIN/TAZOBACTAM 3.375 GM in IV NORMAL SALINE 50ML 50 ML IV SCH ×4 (06:09→23:02)
[2020-03-07 07:44] VITALS: BP 151/62
[2020-03-07] MEDS: predniSONE 10 MG TABLET PO SCH (09:03)
[2020-03-07] MEDS: PANTOPRAZOLE IV PUSH 40 MG VIAL. IVP SCH (09:03)
[2020-03-07] MEDS: ASCORBIC ACID 500 MG TABLET PO SCH (09:03)
[2020-03-07] MEDS: ZINC SULFATE 220 MG CAPSULE. PO SCH (09:03)
[2020-03-07] MEDS: CHOLECALCIFEROL (VITAMIN D3) 5,000 UNIT CAPSULE PO SCH (09:03)
[2020-03-07] MEDS: LACTOBACILLUS RHAMNOSUS GG 1 CAPSULE. PO SCH ×2 (09:03→21:26)
--- NOTE | 2020-03-07 09:35 | PDOC ---
Date of Service: DATE: 03/07/20 TIME: 09:32 Subjective: Subjective: Tearful - says she's depressed - thinks she can take better care of herself at home. Pain is better. Stooling. Usually follows a vegan diet, would really like to take a shower. Wondering about repeating CT. Objective: Vital Signs: Vital Signs Date Time Temp Pulse Resp B/P (MAP) Pulse Ox O2 Delivery O2 Flow Rate FiO2 03/07/20 07:44 97.9 92 18 151/62 (91) 97 Room Air 97.9 03/07/20 03:00 3.0 Labs: Laboratory Tests Test 03/07/20 04:40 White Blood Count 9.1 x10^3/uL Red Blood Count 3.97 x10^6/uL Hemoglobin 11.8 g/dL Hematocrit 35.0 % Mean Corpuscular Volume 88 fL Mean Corpuscular Hemoglobin 30 pg Mean Corpuscular Hemoglobin Concent 34 g/dL Red Cell Distribution Width 16.3 % Platelet Count 153 x10^3/uL Neutrophils (%) (Auto) 83 % Lymphocytes (%) (Auto) 9 % Monocytes (%) (Auto) 8 % Eosinophils (%) (Auto) 0 % Basophils (%) (Auto) 0 % Neutrophils # (Auto) 7.6 x10^3/uL Lymphocytes # (Auto) 0.8 x10^3/uL Monocytes # (Auto) 0.7 x10^3/uL Eosinophils # (Auto) 0.0 x10^3/uL Basophils # (Auto) 0.0 x10^3/uL Sodium Level 140 mmol/L Potassium Level 3.7 mmol/L Chloride Level 107 mmol/L Carbon Dioxide Level 23 mmol/L Anion Gap 10 Blood Urea Nitrogen 10 mg/dL Creatinine 0.5 mg/dL Estimated GFR (Cockcroft-Gault) 126.3 Glucose Level 99 mg/dL Calcium Level 8.4 mg/dL C-Reactive Protein, Quantitative 64.3 mg/L GRAM STAIN Final Final GRAM NEGATIVE RODS:MANY GRAM POSITIVE COCCI:MANY SQUAMOUS EPI CELL:RARE PMN (WBCs):MANY ANAEROBIC-AEROBIC CULTURE Preliminary Preliminary MANY FINAL ID= [ESCHERICHIA COLI] X2 ENTEROCOCCUS AVIUM ESCHERICHIA COLI Unless otherwise specified, Testing Performed by: [address] [address] For Inquires, the Physician may contact the Microbiology department at [phone] PE: GEN: NAD LUNGS: CTAB HEART: RRR ABD: soft, non-tender, drain purulent NEURO/PSYCH: A & O 3, crying A/P: ?COVID-19 infection - conflicting testing - another pending Elevated CRP - better Diverticulitis w/ perf/abscess s/p IR drain 03/04 CRC screen - UTD -- Her desire to DC noted - defer to primary/surgery. PO PPI. Justicifation of Admission Dx: Justifications for Admission: Justification of Admission Dx: Yes JOHNNIE KING Mar 07, 2020 09:35
--- NOTE | 2020-03-07 10:02 | PDOC ---
AMY FISH CISTERN ROOM OPERATOR 03/07/20 1002: SURGICAL PROGRESS NOTE DATE: 03/07/20 TIME: 10:00 Subjective tearful--wants to go home, worried about covid exposure no abdominal pain, no n/v eats healthier at home Vital Signs Vital Signs Date Time Temp Pulse Resp B/P (MAP) Pulse Ox O2 Delivery O2 Flow Rate FiO2 03/07/20 07:44 97.9 92 18 151/62 (91) 97 Room Air 97.9 03/07/20 03:00 3.0 I&O Intake and Output 03/07/20 07:00 Intake Total 1800 ml Output Total 10 ml Balance 1790 ml Intake Oral 500 ml IV Total 1300 ml Drainage Total 10 ml # Voids 4 # Bowel Movements 1 General: Alert, Oriented X3, Cooperative Abdomen: Soft, Other (ND, drain purlent ) Labs Laboratory Tests Test 03/06/20 03:00 03/06/20 03:30 03/07/20 04:40 Sodium Level 139 mmol/L (136-145) 140 mmol/L (136-145) Potassium Level 3.9 mmol/L (3.5-5.1) 3.7 mmol/L (3.5-5.1) Chloride Level 107 mmol/L (98-107) 107 mmol/L (98-107) Carbon Dioxide Level 21 mmol/L (21-32) 23 mmol/L (21-32) Anion Gap 11 (6-14) 10 (6-14) Blood Urea Nitrogen 11 mg/dL (7-20) 10 mg/dL (7-20) Creatinine 0.5 mg/dL (0.6-1.0) 0.5 mg/dL (0.6-1.0) Estimated GFR (Cockcroft-Gault) 126.3 126.3 Glucose Level 89 mg/dL (70-99) 99 mg/dL (70-99) Calcium Level 8.4 mg/dL (8.5-10.1) 8.4 mg/dL (8.5-10.1) C-Reactive Protein, Quantitative 126.0 mg/L (0-3.3) 64.3 mg/L (0-3.3) White Blood Count 10.9 x10^3/uL (4.0-11.0) 9.1 x10^3/uL (4.0-11.0) Red Blood Count 3.97 x10^6/uL (3.50-5.40) 3.97 x10^6/uL (3.50-5.40) Hemoglobin 11.8 g/dL (12.0-15.5) 11.8 g/dL (12.0-15.5) Hematocrit 34.9 % (36.0-47.0) 35.0 % (36.0-47.0) Mean Corpuscular Volume 88 fL (79-100) 88 fL (79-100) Mean Corpuscular Hemoglobin 30 pg (25-35) 30 pg (25-35) Mean Corpuscular Hemoglobin Concent 34 g/dL (31-37) 34 g/dL (31-37) Red Cell Distribution Width 19.1 % (11.5-14.5) 16.3 % (11.5-14.5) Platelet Count 137 x10^3/uL (140-400) 153 x10^3/uL (140-400) Neutrophils (%) (Auto) 83 % (31-73) 83 % (31-73) Lymphocytes (%) (Auto) 7 % (24-48) 9 % (24-48) Monocytes (%) (Auto) 8 % (0-9) 8 % (0-9) Eosinophils (%) (Auto) 1 % (0-3) 0 % (0-3) Basophils (%) (Auto) 1 % (0-3) 0 % (0-3) Neutrophils # (Auto) 9.1 x10^3/uL (1.8-7.7) 7.6 x10^3/uL (1.8-7.7) Lymphocytes # (Auto) 0.8 x10^3/uL (1.0-4.8) 0.8 x10^3/uL (1.0-4.8) Monocytes # (Auto) 0.9 x10^3/uL (0.0-1.1) 0.7 x10^3/uL (0.0-1.1) Eosinophils # (Auto) 0.1 x10^3/uL (0.0-0.7) 0.0 x10^3/uL (0.0-0.7) Basophils # (Auto) 0.1 x10^3/uL (0.0-0.2) 0.0 x10^3/uL (0.0-0.2) Laboratory Tests Test 03/07/20 04:40 White Blood Count 9.1 x10^3/uL (4.0-11.0) Red Blood Count 3.97 x10^6/uL (3.50-5.40) Hemoglobin 11.8 g/dL (12.0-15.5) Hematocrit 35.0 % (36.0-47.0) Mean Corpuscular Volume 88 fL (79-100) Mean Corpuscular Hemoglobin 30 pg (25-35) Mean Corpuscular Hemoglobin Concent 34 g/dL (31-37) Red Cell Distribution Width 16.3 % (11.5-14.5) Platelet Count 153 x10^3/uL (140-400) Neutrophils (%) (Auto) 83 % (31-73) Lymphocytes (%) (Auto) 9 % (24-48) Monocytes (%) (Auto) 8 % (0-9) Eosinophils (%) (Auto) 0 % (0-3) Basophils (%) (Auto) 0 % (0-3) Neutrophils # (Auto) 7.6 x10^3/uL (1.8-7.7) Lymphocytes # (Auto) 0.8 x10^3/uL (1.0-4.8) Monocytes # (Auto) 0.7 x10^3/uL (0.0-1.1) Eosinophils # (Auto) 0.0 x10^3/uL (0.0-0.7) Basophils # (Auto) 0.0 x10^3/uL (0.0-0.2) Sodium Level 140 mmol/L (136-145) Potassium Level 3.7 mmol/L (3.5-5.1) Chloride Level 107 mmol/L (98-107) Carbon Dioxide Level 23 mmol/L (21-32) Anion Gap 10 (6-14) Blood Urea Nitrogen 10 mg/dL (7-20) Creatinine 0.5 mg/dL (0.6-1.0) Estimated GFR (Cockcroft-Gault) 126.3 Glucose Level 99 mg/dL (70-99) Calcium Level 8.4 mg/dL (8.5-10.1) C-Reactive Protein, Quantitative 64.3 mg/L (0-3.3) Assessment/Plan stable, WBC normal still needs drain, repeat ct when 2 consecutive days output less than 10cc abx plan as per ID Justicifation of Admission Dx: Justifications for Admission: Justification of Admission Dx: Yes ANDRZEJ PECK MD 03/07/20 1545: SURGICAL PROGRESS NOTE Assessment/Plan Pt seen and examined. Agree with Ms. Fish's note Pt feels much better, crys diet abd soft, drain in place OK to d/c home with abx and drain when cleared by others AMY FISH APRN Mar 07, 2020 10:02 ANDRZEJ PECK MD Mar 07, 2020 15:45
[2020-03-07 11:06] VITALS: BP 135/72
[2020-03-07] MEDS: oxyCODONE/APAP 10/325 1 TAB TABLET PO PRN ×2 (11:28→21:26)
--- NOTE | 2020-03-07 12:17 | PDOC ---
[facility] PROGRESS NOTE Date of Service DOS: DATE: 03/07/20 TIME: 12:10 Chief Complaint Chief Complaint COVID-19 infection Abdominal pain due to acute diverticulitis with uncontained perforation with developing abscess status post perirectal IR drain 03/04/2020 History of rheumatoid arthritis Hypokalemia A/P: Sepsis Appreciate surgical recommendationssuccessful IR drainage, no surgical intervention at this time Appreciate GI recommendationspending recommendations to advance diet Continue IV Zosyn Serial abdominal exams Keep n.p.o. with sips with meds until passing flatus Lovenox for DVT prophylaxis Clear liquid diet Full code Discussed with RN and SW Disposition inpatient care as above Surrogate decision maker is History of Present Illness History of Present Illness 03/07/2029 No acute events overnight. Patient seen and examined bedside. She is having bowel movement, tolerating her diet. Continue IV antibiotics per ID. She is wanting to discharge home. Patient's chart, labs, images were reviewed and discussed with RN 03/06/2020 No acute events overnight. Patient seen and examined bedside. LYNNE drain with 20 cc purulent drainage. Pain is improved. ESR is improving. Patient's chart, labs, images were reviewed and discussed with RN 03/05/2020 No acute events overnight. Patient is feeling much better after drain is placed. Pain is controlled. Patient would like to eat something at this time. Patient's chart, labs, images were reviewed and discussed with RN 03/04/2020 No acute events overnight. Patient is tearful with the way she has been treated this current hospital. She felt she is neglected and no one is really informing her about her situation. It was discussed in detail again her the current plan with her developing abscesses and at that a interventional drain will need to be placed. It was also explained in great detail of the drain would not drain out entirely all her abscesses and that would lead to a more invasive surgical intervention. Patient expressed understanding and will continue to work with us for further management. 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 We will keep her on strict n.p.o. until she has more return of bowel function. Patient's chart, labs, images were reviewed and discussed with RN Patient is a 59-year-old female with past medical history of rheumatoid arthritis and diverticulosis which she presents with lower quadrant abdominal pain aching, 10 out of 10, nonradiating, constant. Patient states that she developed this pain that started on Saturday after she had [place] fries and biscuits. She did not have any fibers or fruits. She states she is normally fairly regular with normal bowel movements daily. She has been constipated for approximately 4 days. Her last bowel movement was mucousy and small but no blood. Denies fevers, cough, shortness of breath, chest pain, dysuria, bloody stools. Of note, patient was also found at [facility] ER to be COVID positive. Dr. Glaser from general surgery was consulted at the time and only recommended IV antibiotics, keep patient n.p.o., and that the patient did not need any surgical intervention at that time. Patient was transferred here for higher level of care. 03/03/2020 Patient evaluated bedside. No acute events overnight. Chart and labs reviewed, discussed with RN. Confined perforation, no urgent intervention needed. May need percutaneous drainage or surgery eventually. Continue antibiotics for now. Add Flagyl for anaerobic coverage. Will consult general surgery for evaluation. Vitals/I&O Vitals/I&O: Vital Signs Date Time Temp Pulse Resp B/P (MAP) Pulse Ox O2 Delivery O2 Flow Rate FiO2 03/07/20 11:28 Room Air 03/07/20 11:06 98.0 84 16 135/72 (93) 98 98.0 03/07/20 03:00 3.0 I & O 03/06/20 03/06/20 03/07/20 15:00 23:00 07:00 Intake Total 200 ml 400 ml 1200 ml Output Total 10 ml Balance 200 ml 390 ml 1200 ml Physical Exam Physical Exam: GEN: No apparent distress. Alert and oriented HEENT: Normal cephalic, atraumatic, external auditory canals are patent NECK: Supple, no JVD, no thyromegaly was noted LUNGS: Bilateral clear HEART: RRR, S1, S2 present. Peripheral pulses intact, no obvious murmurs noted ABDOMEN: Soft, nontender. Positive bowel sounds, no organomegaly, normal bowel sounds EXTREMITIES: Without clubbing, cyanosis, or edema. Pedal pulses intact. Negative Homans sign General: Alert, Oriented X3, Cooperative Heart: Regular rate Lungs: Clear Abdomen: Soft, Other (ND, drain purlent ) Extremities: No clubbing Skin: No rashes, No breakdown Labs Labs: Laboratory Tests Test 03/07/20 04:40 White Blood Count 9.1 x10^3/uL (4.0-11.0) Red Blood Count 3.97 x10^6/uL (3.50-5.40) Hemoglobin 11.8 g/dL (12.0-15.5) Hematocrit 35.0 % (36.0-47.0) Mean Corpuscular Volume 88 fL (79-100) Mean Corpuscular Hemoglobin 30 pg (25-35) Mean Corpuscular Hemoglobin Concent 34 g/dL (31-37) Red Cell Distribution Width 16.3 % (11.5-14.5) Platelet Count 153 x10^3/uL (140-400) Neutrophils (%) (Auto) 83 % (31-73) Lymphocytes (%) (Auto) 9 % (24-48) Monocytes (%) (Auto) 8 % (0-9) Eosinophils (%) (Auto) 0 % (0-3) Basophils (%) (Auto) 0 % (0-3) Neutrophils # (Auto) 7.6 x10^3/uL (1.8-7.7) Lymphocytes # (Auto) 0.8 x10^3/uL (1.0-4.8) Monocytes # (Auto) 0.7 x10^3/uL (0.0-1.1) Eosinophils # (Auto) 0.0 x10^3/uL (0.0-0.7) Basophils # (Auto) 0.0 x10^3/uL (0.0-0.2) Sodium Level 140 mmol/L (136-145) Potassium Level 3.7 mmol/L (3.5-5.1) Chloride Level 107 mmol/L (98-107) Carbon Dioxide Level 23 mmol/L (21-32) Anion Gap 10 (6-14) Blood Urea Nitrogen 10 mg/dL (7-20) Creatinine 0.5 mg/dL (0.6-1.0) Estimated GFR (Cockcroft-Gault) 126.3 Glucose Level 99 mg/dL (70-99) Calcium Level 8.4 mg/dL (8.5-10.1) C-Reactive Protein, Quantitative 64.3 mg/L (0-3.3) Review of Systems Review of Systems: Denies fever, denies chest pain, denies shortness of breath Assessment and Plan Problems: (1) Perforated bowel (2) Acute diverticulitis (3) Sepsis Qualifiers: Comment Review of Relevant I have reviewed the following items georgina (where applicable) has been applied. Justifications for Admission Other Justification SAIDA NOONAN MD Mar 07, 2020 12:17
[2020-03-07 15:24] VITALS: BP 142/72
--- NOTE | 2020-03-07 17:21 | NUR ---
SW following. Spoke with RN and reviewed chart. Pt from home. Pt remains on 02 and IV Zosyn. SW called into pt's room again today, still no answer. Pt's RAPID COVID test was positive. SW following for discharge planning.
[2020-03-07 19:45] VITALS: BP 138/64
[2020-03-07 23:24] VITALS: BP 109/52
[2020-03-08 03:40] VITALS: BP 112/92
[2020-03-08] MEDS: oxyCODONE/APAP 10/325 1 TAB TABLET PO PRN (05:04)
[2020-03-08 05:26] LABS: BASO % 0 % (0-3); EOS % 0 % (0-3); HEMATOCRIT 37.1 % (36.0-47.0); HEMOGLOBIN 12.5 g/dL (12.0-15.5); LYMPH # 1.1 x10^3/uL (1.0-4.8); LYMPH % 18 % (24-48); MEAN CORPUSCULAR HEMOGLOBIN 29 pg (25-35); MEAN CORPUSCULAR HGB CONC 34 g/dL (31-37); MEAN CORPUSCULAR VOLUME 87 fL (79-100); MONO # 0.6 x10^3/uL (0.0-1.1); MONO % 10 % (0-9); NEUT # 4.2 x10^3/uL (1.8-7.7); NEUT % 72 % (31-73); PLATELET COUNT 194 x10^3/uL (140-400); RED BLOOD COUNT 4.26 x10^6/uL (3.50-5.40); RED CELL DISTRIBUTION WIDTH 16.9 % (11.5-14.5); WHITE BLOOD COUNT 5.9 x10^3/uL (4.0-11.0)
[2020-03-08 05:57] LABS: C-REACTIVE PROTEIN 37.3 mg/L (0-3.3); CALCIUM 8.2 mg/dL (8.5-10.1); CREATININE 0.6 mg/dL (0.6-1.0); GFR 102.3; POTASSIUM 3.8 mmol/L (3.5-5.1)
[2020-03-08] MEDS: PIPERACILLIN/TAZOBACTAM 3.375 GM in IV NORMAL SALINE 50ML 50 ML IV SCH (06:13)
[2020-03-08 07:10] VITALS: BP 152/84
[2020-03-08] MEDS ORDERED: PANTOPRAZOLE 40 MG TABLET.DR. PO SCH (07:30)
[2020-03-08] MEDS: ZINC SULFATE 220 MG CAPSULE. PO SCH (07:59)
[2020-03-08] MEDS: ASCORBIC ACID 500 MG TABLET PO SCH (07:59)
[2020-03-08] MEDS: LACTOBACILLUS RHAMNOSUS GG 1 CAPSULE. PO SCH (07:59)
[2020-03-08] MEDS: CHOLECALCIFEROL (VITAMIN D3) 5,000 UNIT CAPSULE PO SCH (07:59)
[2020-03-08] MEDS: predniSONE 10 MG TABLET PO SCH (07:59)
--- NOTE | 2020-03-08 09:23 | PDOC ---
AMY FISH ENVIRONMENTAL SAMPLING TECHNICIAN 03/08/20 0923: SURGICAL PROGRESS NOTE DATE: 03/08/20 TIME: 09:22 Subjective no pain no nausea does not like food here Vital Signs Vital Signs Date Time Temp Pulse Resp B/P (MAP) Pulse Ox O2 Delivery O2 Flow Rate FiO2 03/08/20 07:10 97.7 72 21 152/84 (106) 97 Room Air 97.7 I&O Intake and Output 03/08/20 07:00 Intake Total 950 ml Output Total 40 ml Balance 910 ml Intake Oral 700 ml IV Total 250 ml Drainage Total 40 ml # Voids 4 # Bowel Movements 5 General: Alert, Oriented X3, Cooperative Abdomen: Soft, Other (drain purulent) Labs Laboratory Tests Test 03/06/20 20:00 03/07/20 04:40 03/08/20 04:20 Coronavirus (PCR) Not detected (Not Detected) White Blood Count 9.1 x10^3/uL (4.0-11.0) 5.9 x10^3/uL (4.0-11.0) Red Blood Count 3.97 x10^6/uL (3.50-5.40) 4.26 x10^6/uL (3.50-5.40) Hemoglobin 11.8 g/dL (12.0-15.5) 12.5 g/dL (12.0-15.5) Hematocrit 35.0 % (36.0-47.0) 37.1 % (36.0-47.0) Mean Corpuscular Volume 88 fL (79-100) 87 fL (79-100) Mean Corpuscular Hemoglobin 30 pg (25-35) 29 pg (25-35) Mean Corpuscular Hemoglobin Concent 34 g/dL (31-37) 34 g/dL (31-37) Red Cell Distribution Width 16.3 % (11.5-14.5) 16.9 % (11.5-14.5) Platelet Count 153 x10^3/uL (140-400) 194 x10^3/uL (140-400) Neutrophils (%) (Auto) 83 % (31-73) 72 % (31-73) Lymphocytes (%) (Auto) 9 % (24-48) 18 % (24-48) Monocytes (%) (Auto) 8 % (0-9) 10 % (0-9) Eosinophils (%) (Auto) 0 % (0-3) 0 % (0-3) Basophils (%) (Auto) 0 % (0-3) 0 % (0-3) Neutrophils # (Auto) 7.6 x10^3/uL (1.8-7.7) 4.2 x10^3/uL (1.8-7.7) Lymphocytes # (Auto) 0.8 x10^3/uL (1.0-4.8) 1.1 x10^3/uL (1.0-4.8) Monocytes # (Auto) 0.7 x10^3/uL (0.0-1.1) 0.6 x10^3/uL (0.0-1.1) Eosinophils # (Auto) 0.0 x10^3/uL (0.0-0.7) 0.0 x10^3/uL (0.0-0.7) Basophils # (Auto) 0.0 x10^3/uL (0.0-0.2) 0.0 x10^3/uL (0.0-0.2) Sodium Level 140 mmol/L (136-145) 141 mmol/L (136-145) Potassium Level 3.7 mmol/L (3.5-5.1) 3.8 mmol/L (3.5-5.1) Chloride Level 107 mmol/L (98-107) 106 mmol/L (98-107) Carbon Dioxide Level 23 mmol/L (21-32) 26 mmol/L (21-32) Anion Gap 10 (6-14) 9 (6-14) Blood Urea Nitrogen 10 mg/dL (7-20) 9 mg/dL (7-20) Creatinine 0.5 mg/dL (0.6-1.0) 0.6 mg/dL (0.6-1.0) Estimated GFR (Cockcroft-Gault) 126.3 102.3 Glucose Level 99 mg/dL (70-99) 110 mg/dL (70-99) Calcium Level 8.4 mg/dL (8.5-10.1) 8.2 mg/dL (8.5-10.1) C-Reactive Protein, Quantitative 64.3 mg/L (0-3.3) 37.3 mg/L (0-3.3) Laboratory Tests Test 03/08/20 04:20 White Blood Count 5.9 x10^3/uL (4.0-11.0) Red Blood Count 4.26 x10^6/uL (3.50-5.40) Hemoglobin 12.5 g/dL (12.0-15.5) Hematocrit 37.1 % (36.0-47.0) Mean Corpuscular Volume 87 fL (79-100) Mean Corpuscular Hemoglobin 29 pg (25-35) Mean Corpuscular Hemoglobin Concent 34 g/dL (31-37) Red Cell Distribution Width 16.9 % (11.5-14.5) Platelet Count 194 x10^3/uL (140-400) Neutrophils (%) (Auto) 72 % (31-73) Lymphocytes (%) (Auto) 18 % (24-48) Monocytes (%) (Auto) 10 % (0-9) Eosinophils (%) (Auto) 0 % (0-3) Basophils (%) (Auto) 0 % (0-3) Neutrophils # (Auto) 4.2 x10^3/uL (1.8-7.7) Lymphocytes # (Auto) 1.1 x10^3/uL (1.0-4.8) Monocytes # (Auto) 0.6 x10^3/uL (0.0-1.1) Eosinophils # (Auto) 0.0 x10^3/uL (0.0-0.7) Basophils # (Auto) 0.0 x10^3/uL (0.0-0.2) Sodium Level 141 mmol/L (136-145) Potassium Level 3.8 mmol/L (3.5-5.1) Chloride Level 106 mmol/L (98-107) Carbon Dioxide Level 26 mmol/L (21-32) Anion Gap 9 (6-14) Blood Urea Nitrogen 9 mg/dL (7-20) Creatinine 0.6 mg/dL (0.6-1.0) Estimated GFR (Cockcroft-Gault) 102.3 Glucose Level 110 mg/dL (70-99) Calcium Level 8.2 mg/dL (8.5-10.1) C-Reactive Protein, Quantitative 37.3 mg/L (0-3.3) Assessment/Plan will ask ID to assist with home abx home with drain call us this week with drain output--will arrange outpt ct once drain output minimal Justicifation of Admission Dx: Justifications for Admission: Justification of Admission Dx: Yes ANDRZEJ PECK MD 03/08/20 1021: SURGICAL PROGRESS NOTE Assessment/Plan Pt seen and examined. Agree with Ms. Fish's note Pt without c/o, passing stools abd soft, ND, NTTP, drain with purulent drainage OK to d/c home with abx and drain AMY FISH APRN Mar 08, 2020 09:23 ANDRZEJ PECK MD Mar 08, 2020 10:21
--- NOTE | 2020-03-08 10:40 | PDOC ---
Infectious Disease Note Vital Sign Vital Signs Vital Signs Date Time Temp Pulse Resp B/P (MAP) Pulse Ox O2 Delivery O2 Flow Rate FiO2 03/08/20 08:00 Room Air 03/08/20 07:10 97.7 72 21 152/84 (106) 97 97.7 Labs Lab Laboratory Tests Test 03/08/20 04:20 White Blood Count 5.9 x10^3/uL (4.0-11.0) Red Blood Count 4.26 x10^6/uL (3.50-5.40) Hemoglobin 12.5 g/dL (12.0-15.5) Hematocrit 37.1 % (36.0-47.0) Mean Corpuscular Volume 87 fL (79-100) Mean Corpuscular Hemoglobin 29 pg (25-35) Mean Corpuscular Hemoglobin Concent 34 g/dL (31-37) Red Cell Distribution Width 16.9 % (11.5-14.5) Platelet Count 194 x10^3/uL (140-400) Neutrophils (%) (Auto) 72 % (31-73) Lymphocytes (%) (Auto) 18 % (24-48) Monocytes (%) (Auto) 10 % (0-9) Eosinophils (%) (Auto) 0 % (0-3) Basophils (%) (Auto) 0 % (0-3) Neutrophils # (Auto) 4.2 x10^3/uL (1.8-7.7) Lymphocytes # (Auto) 1.1 x10^3/uL (1.0-4.8) Monocytes # (Auto) 0.6 x10^3/uL (0.0-1.1) Eosinophils # (Auto) 0.0 x10^3/uL (0.0-0.7) Basophils # (Auto) 0.0 x10^3/uL (0.0-0.2) Sodium Level 141 mmol/L (136-145) Potassium Level 3.8 mmol/L (3.5-5.1) Chloride Level 106 mmol/L (98-107) Carbon Dioxide Level 26 mmol/L (21-32) Anion Gap 9 (6-14) Blood Urea Nitrogen 9 mg/dL (7-20) Creatinine 0.6 mg/dL (0.6-1.0) Estimated GFR (Cockcroft-Gault) 102.3 Glucose Level 110 mg/dL (70-99) Calcium Level 8.2 mg/dL (8.5-10.1) C-Reactive Protein, Quantitative 37.3 mg/L (0-3.3) Micro Microbiology 03/04/20 Gram Stain - Final, Resulted 03/04/20 Aerobic and Anaerobic Culture - Preliminary, Resulted 03/04/20 Antimicrobic Susceptibility - Preliminary, Resulted Objective Assessment pt seen, consult dictated Plan Plan of Care / BOB SIERRA MD Mar 08, 2020 10:40
[2020-03-08 11:20] VITALS: BP 144/75
--- NOTE | 2020-03-08 11:22 | CONS ---
DATE OF CONSULTATION: 03/08/2020 REQUESTING PHYSICIAN: Venkatesh Carrasquillo MD REASON FOR CONSULTATION: Antibiotic management for diverticular perforation. HISTORY OF PRESENT ILLNESS: This is a 59-year-old female, who came in with abdominal pain. The patient does have rheumatoid arthritis and diverticulosis. The patient was found to have diverticulitis with perforation. Initial rapid antigen COVID test was positive, but then two COVID PCRs were negative. The patient has been receiving Zosyn and Flagyl and now feeling good and decided that she needs to go home. The patient had a CT-guided drainage placement done. The patient denies any nausea, vomiting, diarrhea. Denies any abdominal pain. Denies any headache or fever. The patient is ready to go home she says. PAST MEDICAL HISTORY: Positive for rheumatoid arthritis, obesity, diverticulosis, hysterectomy. She has had bilateral knee replacement done. SOCIAL HISTORY: Negative for smoking, alcohol or illicit drug use. ALLERGIES: LISTED ALLERGIC TO ABATACEPT. CURRENT MEDICATIONS: Reviewed. REVIEW OF SYSTEMS: As per HPI, all other systems reviewed are negative. PHYSICAL EXAMINATION: GENERAL: Alert, oriented female, not in any distress. VITALS: Stable. The patient did have fever when she came in, but since then she has been afebrile. Rest of the vitals are stable. HEENT: Both pupils are round and reacting. No conjunctival lesion. No lesion in the mouth. NECK: Supple. No JVP. No lymphadenopathy. LUNGS: Clear. HEART: S1, S2 regular. ABDOMEN: Soft, nontender. No organomegaly. EXTREMITIES: No edema or cyanosis. SKIN: Unremarkable. NEUROLOGIC: The patient is alert, awake, appropriate. No focal neurologic deficit. The patient does have a LYNNE drain in place. LABORATORY DATA: White count is normal. BUN and creatinine is normal. Culture is showing E. coli and there is Gram-positive cocci in the Gram stain, but so far only E. coli is growing, which is pansensitive. CT of the abdomen and pelvis reviewed. IMPRESSION: 1. Diverticulitis with diverticular perforation. 2. Fever. 3. Leukocytosis. 4. Rheumatoid arthritis. 5. Obesity. RECOMMENDATIONS: Antibiotic can be changed to p.o. Augmentin. Follow up with Surgery. Supportive care and if worse, then she has to come back. Probiotics. Thank you very much, Dr. Carrasquillo, for giving me the opportunity to participate in this patient's care. BOB SIERRA MD DR: BRODIE/jeremiah JOB#: [id number] / [id number]
--- NOTE | 2020-03-08 12:02 | PDOC ---
Date of Service: DATE: 03/08/20 TIME: 11:59 Subjective: Subjective: She took a shower and feels much better. So glad to get to go home. Objective: Objective: Reviewed chart - plans for GI soft diet, DC home on Augmentin w/ drain, and follow-up w/ surgery next week. Vital Signs: Vital Signs Date Time Temp Pulse Resp B/P (MAP) Pulse Ox O2 Delivery O2 Flow Rate FiO2 03/08/20 08:00 Room Air 03/08/20 07:10 97.7 72 21 152/84 (106) 97 97.7 Labs: Laboratory Tests Test 03/08/20 04:20 White Blood Count 5.9 x10^3/uL Red Blood Count 4.26 x10^6/uL Hemoglobin 12.5 g/dL Hematocrit 37.1 % Mean Corpuscular Volume 87 fL Mean Corpuscular Hemoglobin 29 pg Mean Corpuscular Hemoglobin Concent 34 g/dL Red Cell Distribution Width 16.9 % Platelet Count 194 x10^3/uL Neutrophils (%) (Auto) 72 % Lymphocytes (%) (Auto) 18 % Monocytes (%) (Auto) 10 % Eosinophils (%) (Auto) 0 % Basophils (%) (Auto) 0 % Neutrophils # (Auto) 4.2 x10^3/uL Lymphocytes # (Auto) 1.1 x10^3/uL Monocytes # (Auto) 0.6 x10^3/uL Eosinophils # (Auto) 0.0 x10^3/uL Basophils # (Auto) 0.0 x10^3/uL Sodium Level 141 mmol/L Potassium Level 3.8 mmol/L Chloride Level 106 mmol/L Carbon Dioxide Level 26 mmol/L Anion Gap 9 Blood Urea Nitrogen 9 mg/dL Creatinine 0.6 mg/dL Estimated GFR (Cockcroft-Gault) 102.3 Glucose Level 110 mg/dL Calcium Level 8.2 mg/dL C-Reactive Protein, Quantitative 37.3 mg/L PE: GEN: NAD LUNGS: CTAB HEART: RRR ABD: S/ND/NT, drain purulent NEURO/PSYCH: A & O 3 A/P: ?COVID-19 infection - now w/ negative PCR x 2 Diverticulitis w/ perf/abscess s/p IR drain 03/04 CRC screen - UTD (2019) -- Plans as above. Justicifation of Admission Dx: Justifications for Admission: Justification of Admission Dx: Yes JOHNNIE KING Mar 08, 2020 12:02
--- NOTE | 2020-03-08 13:30 | PDOC ---
[employer] PROGRESS NOTE Date of Service DOS: DATE: 03/08/20 TIME: 13:25 Chief Complaint Chief Complaint COVID-19 infection Abdominal pain due to acute diverticulitis with uncontained perforation with developing abscess status post perirectal IR drain 03/04/2020 History of rheumatoid arthritis Hypokalemia A/P: Sepsis Appreciate surgical recommendationssuccessful IR drainage, no surgical intervention at this time Appreciate GI recommendationspending recommendations to advance diet Continue IV Zosyn Serial abdominal exams Keep n.p.o. with sips with meds until passing flatus Lovenox for DVT prophylaxis Clear liquid diet Full code Discussed with RN and SW Disposition inpatient care as above Surrogate decision maker is History of Present Illness History of Present Illness 03/08/2020 Patient evaluated at bedside. Abdominal pain improved, she is eating food without any discomfort. Patient will discharge home with with her LYNNE drain in place, oral antibiotics, and follow-up with surgery. Approximately 35 minutes was spent on this discharge with greater than 50% of time spent counseling, discussing food intake, discuss medication, and coordinating care 03/07/2020 No acute events overnight. Patient seen and examined bedside. She is having bowel movement, tolerating her diet. Continue IV antibiotics per ID. She is wanting to discharge home. Patient's chart, labs, images were reviewed and disc ussed with RN 03/06/2020 No acute events overnight. Patient seen and examined bedside. LYNNE drain with 20 cc purulent drainage. Pain is improved. ESR is improving. Patient's chart, labs, images were reviewed and discussed with RN 03/05/2020 No acute events overnight. Patient is feeling much better after drain is placed. Pain is controlled. Patient would like to eat something at this time. Patient's chart, labs, images were reviewed and discussed with RN 03/04/2020 No acute events overnight. Patient is tearful with the way she has been treated this current hospital. She felt she is neglected and no one is really informing her about her situation. It was discussed in detail again her the current plan with her developing abscesses and at that a interventional drain will need to be placed. It was also explained in great detail of the drain would not drain out entirely all her abscesses and that would lead to a more invasive surgical intervention. Patient expressed understanding and will continue to work with us for further management. Patient's pain is controlled on Dilaudid SOLE STAPLER WELT. We will keep her on strict n.p.o. until she has more return of bowel function. Patient's chart, labs, images were reviewed and discussed with RN Patient is a 59-year-old female with past medical history of rheumatoid arthritis and diverticulosis which she presents with lower quadrant abdominal pa in aching, 10 out of 10, nonradiating, constant. Patient states that she developed this pain that started on Saturday after she had [place] fries and biscuits. She did not have any fibers or fruits. She states she is normally fairly regular with normal bowel movements daily. She has been constipated for approximately 4 days. Her last bowel movement was mucousy and small but no bl ood. Denies fevers, cough, shortness of breath, chest pain, dysuria, bloody stools. Of note, patient was also found at [facility] ER to be COVID positive. Dr. Glaser from general surgery was consulted at the time and only recommended IV antibiotics, keep patient n.p.o., and that the patient did not need any surgical intervention at that time. Patient was transferred here for higher level of care. 03/03/2020 Patient evaluated bedside. No acute events overnight. Chart and labs reviewed, discussed with RN. Confined perforation, no urgent intervention needed. May need percutaneous drainage or surgery eventually. Continue antibiotics for now. Add Flagyl for anaerobic coverage. Will consult general surgery for evaluation. Vitals/I&O Vitals/I&O: Vital Signs Date Time Temp Pulse Resp B/P (MAP) Pulse Ox O2 Delivery O2 Flow Rate FiO2 03/08/20 11:20 98.3 74 18 144/75 (98) 98 Room Air 98.3 I & O 03/07/20 03/07/20 03/08/20 15:00 23:00 07:00 Intake Total 400 ml 280 ml 270 ml Output Total 10 ml 30 ml Balance 390 ml 250 ml 270 ml Physical Exam General: Alert, Oriented X3, Cooperative Heart: Regular rate Lungs: Clear Abdomen: Soft, Other (drain with purulent drainage) Extremities: No clubbing Skin: No rashes, No breakdown Labs Labs: Laboratory Tests Test 03/08/20 04:20 White Blood Count 5.9 x10^3/uL (4.0-11.0) Red Blood Count 4.26 x10^6/uL (3.50-5.40) Hemoglobin 12.5 g/dL (12.0-15.5) Hematocrit 37.1 % (36.0-47.0) Mean Corpuscular Volume 87 fL (79-100) Mean Corpuscular Hemoglobin 29 pg (25-35) Mean Corpuscular Hemoglobin Concent 34 g/dL (31-37) Red Cell Distribution Width 16.9 % (11.5-14.5) Platelet Count 194 x10^3/uL (140-400) Neutrophils (%) (Auto) 72 % (31-73) Lymphocytes (%) (Auto) 18 % (24-48) Monocytes (%) (Auto) 10 % (0-9) Eosinophils (%) (Auto) 0 % (0-3) Basophils (%) (Auto) 0 % (0-3) Neutrophils # (Auto) 4.2 x10^3/uL (1.8-7.7) Lymphocytes # (Auto) 1.1 x10^3/uL (1.0-4.8) Monocytes # (Auto) 0.6 x10^3/uL (0.0-1.1) Eosinophils # (Auto) 0.0 x10^3/uL (0.0-0.7) Basophils # (Auto) 0.0 x10^3/uL (0.0-0.2) Sodium Level 141 mmol/L (136-145) Potassium Level 3.8 mmol/L (3.5-5.1) Chloride Level 106 mmol/L (98-107) Carbon Dioxide Level 26 mmol/L (21-32) Anion Gap 9 (6-14) Blood Urea Nitrogen 9 mg/dL (7-20) Creatinine 0.6 mg/dL (0.6-1.0) Estimated GFR (Cockcroft-Gault) 102.3 Glucose Level 110 mg/dL (70-99) Calcium Level 8.2 mg/dL (8.5-10.1) C-Reactive Protein, Quantitative 37.3 mg/L (0-3.3) Review of Systems Review of Systems: Denies fever, denies vomiting, denies shortness of breath. Assessment and Plan Problems: (1) Sepsis Qualifiers: (2) Acute diverticulitis (3) Perforated bowel Comment Review of Relevant I have reviewed the following items georgina (where applicable) has been applied. Medications: Current Medications Medications (Trade) Dose Ordered Sig/Cristiane Route PRN Reason Start Time Stop Time Status Last Admin Dose Admin Pantoprazole Sodium (Protonix) 40 mg DAILYAC PO 03/08/20 07:30 03/08/20 07:59 Justifications for Admission Other Justification SAIDA NOONAN MD Mar 08, 2020 13:30
[2020-03-08] MEDS ORDERED: AMOX1TAB11 PO (13:38)
[2020-03-08] MEDS ORDERED: LACT1CAP19 PO (13:38)
[2020-03-08] MEDS ORDERED: OXYC1TAB22 PO (13:38)
--- NOTE | 2020-03-08 13:51 | PDOC3 ---
Discharge Summary Visit Information Date of Admission: Mar 01, 2020 Date of Discharge: Mar 08, 2020 Brief Hospital Course Allergies Allergies Coded Allergies Type Severity Reaction Last Updated Verified abatacept Allergy Severe 03/01/20 Yes Vital Signs Vital Signs Date Time Temp Pulse Resp B/P (MAP) Pulse Ox O2 Delivery O2 Flow Rate FiO2 03/08/20 11:20 98.3 74 18 144/75 (98) 98 Room Air 98.3 Lab Results Laboratory Tests Test 03/06/20 20:00 03/07/20 04:40 03/08/20 04:20 Coronavirus (PCR) Not detected (Not Detected) White Blood Count 9.1 x10^3/uL (4.0-11.0) 5.9 x10^3/uL (4.0-11.0) Red Blood Count 3.97 x10^6/uL (3.50-5.40) 4.26 x10^6/uL (3.50-5.40) Hemoglobin 11.8 g/dL (12.0-15.5) 12.5 g/dL (12.0-15.5) Hematocrit 35.0 % (36.0-47.0) 37.1 % (36.0-47.0) Mean Corpuscular Volume 88 fL (79-100) 87 fL (79-100) Mean Corpuscular Hemoglobin 30 pg (25-35) 29 pg (25-35) Mean Corpuscular Hemoglobin Concent 34 g/dL (31-37) 34 g/dL (31-37) Red Cell Distribution Width 16.3 % (11.5-14.5) 16.9 % (11.5-14.5) Platelet Count 153 x10^3/uL (140-400) 194 x10^3/uL (140-400) Neutrophils (%) (Auto) 83 % (31-73) 72 % (31-73) Lymphocytes (%) (Auto) 9 % (24-48) 18 % (24-48) Monocytes (%) (Auto) 8 % (0-9) 10 % (0-9) Eosinophils (%) (Auto) 0 % (0-3) 0 % (0-3) Basophils (%) (Auto) 0 % (0-3) 0 % (0-3) Neutrophils # (Auto) 7.6 x10^3/uL (1.8-7.7) 4.2 x10^3/uL (1.8-7.7) Lymphocytes # (Auto) 0.8 x10^3/uL (1.0-4.8) 1.1 x10^3/uL (1.0-4.8) Monocytes # (Auto) 0.7 x10^3/uL (0.0-1.1) 0.6 x10^3/uL (0.0-1.1) Eosinophils # (Auto) 0.0 x10^3/uL (0.0-0.7) 0.0 x10^3/uL (0.0-0.7) Basophils # (Auto) 0.0 x10^3/uL (0.0-0.2) 0.0 x10^3/uL (0.0-0.2) Sodium Level 140 mmol/L (136-145) 141 mmol/L (136-145) Potassium Level 3.7 mmol/L (3.5-5.1) 3.8 mmol/L (3.5-5.1) Chloride Level 107 mmol/L (98-107) 106 mmol/L (98-107) Carbon Dioxide Level 23 mmol/L (21-32) 26 mmol/L (21-32) Anion Gap 10 (6-14) 9 (6-14) Blood Urea Nitrogen 10 mg/dL (7-20) 9 mg/dL (7-20) Creatinine 0.5 mg/dL (0.6-1.0) 0.6 mg/dL (0.6-1.0) Estimated GFR (Cockcroft-Gault) 126.3 102.3 Glucose Level 99 mg/dL (70-99) 110 mg/dL (70-99) Calcium Level 8.4 mg/dL (8.5-10.1) 8.2 mg/dL (8.5-10.1) C-Reactive Protein, Quantitative 64.3 mg/L (0-3.3) 37.3 mg/L (0-3.3) Laboratory Tests Test 03/08/20 04:20 White Blood Count 5.9 x10^3/uL (4.0-11.0) Red Blood Count 4.26 x10^6/uL (3.50-5.40) Hemoglobin 12.5 g/dL (12.0-15.5) Hematocrit 37.1 % (36.0-47.0) Mean Corpuscular Volume 87 fL (79-100) Mean Corpuscular Hemoglobin 29 pg (25-35) Mean Corpuscular Hemoglobin Concent 34 g/dL (31-37) Red Cell Distribution Width 16.9 % (11.5-14.5) Platelet Count 194 x10^3/uL (140-400) Neutrophils (%) (Auto) 72 % (31-73) Lymphocytes (%) (Auto) 18 % (24-48) Monocytes (%) (Auto) 10 % (0-9) Eosinophils (%) (Auto) 0 % (0-3) Basophils (%) (Auto) 0 % (0-3) Neutrophils # (Auto) 4.2 x10^3/uL (1.8-7.7) Lymphocytes # (Auto) 1.1 x10^3/uL (1.0-4.8) Monocytes # (Auto) 0.6 x10^3/uL (0.0-1.1) Eosinophils # (Auto) 0.0 x10^3/uL (0.0-0.7) Basophils # (Auto) 0.0 x10^3/uL (0.0-0.2) Sodium Level 141 mmol/L (136-145) Potassium Level 3.8 mmol/L (3.5-5.1) Chloride Level 106 mmol/L (98-107) Carbon Dioxide Level 26 mmol/L (21-32) Anion Gap 9 (6-14) Blood Urea Nitrogen 9 mg/dL (7-20) Creatinine 0.6 mg/dL (0.6-1.0) Estimated GFR (Cockcroft-Gault) 102.3 Glucose Level 110 mg/dL (70-99) Calcium Level 8.2 mg/dL (8.5-10.1) C-Reactive Protein, Quantitative 37.3 mg/L (0-3.3) Brief Hospital Course Ms. Tran is a 59 old female who presented with abdominal pain due to acute diverticulitis with contained perforation. Consultations were placed to general surgery and GI. She was treated with Zosyn and metronidazole. She had CT-guided drainage of perirectal abscess by interventional radiology. Associations were placed to infectious disease to help with antibiotic stewardship. Patient improved clinically and her diet was advanced and tolerated. She was discharged with Augmentin twice daily for 10 days to follow- up with surgery outpatient to have LYNNE drain removed. Discharge Information Condition at Discharge: Improved Follow Up: Weeks Disposition/Orders: D/C to Home Scheduled Amoxicillin/Potassium Clav (Amox Tr-K Clv 875-125 Mg Tab) 1 Each Tablet, 1 TAB PO BID for Diverticulitis for 10 Days, #20 Prescribed by: SAIDA NOONAN MD on 03/08/20 1338 Ascorbic Acid (Vitamin C) 500 Mg Capsule.er, 2 CAP PO DAILY for vitamin for 30 Days, #60 Ref 0 (Reported) Entered as Reported by: GARIMA WOLFE on 03/03/201345 Last Taken: Unknown Dose on 03/02/20 Last Action: Converted on 03/03/201640 by GARIMA WOLFE Cholecalciferol (Vitamin D3) (D3-50) 50,000 Unit Capsule, 5,000 UNIT PO DAILY for vitamin, (Reported) Entered as Reported by: GARIMA WOLFE on 03/03/201345 Last Taken: Unknown Dose on 03/02/20 Last Action: Converted on 03/03/201640 by GARIMA WOLFE Lactobacillus Rhamnosus Gg (Culturelle) 1 Each Cap.sprink, 1 CAP PO BID for Diverticulitis for 30 Days, #60 Ref 2 Prescribed by: SAIDA NOONAN MD on 03/08/20 1338 Omeprazole (Omeprazole) 40 Mg Capsule.dr, 1 CAP PO DAILY for GERD, #30 Ref 3 (Reported) Entered as Reported by: PAT LEON RN on 03/03/20721 Last Action: New Order on 03/03/20721 by PAT LEON RN Prednisone (Prednisone) 20 Mg Tablet, 10 MG PO DAILY for RA, (Reported) Entered as Reported by: PAT LEON RN on 03/03/20723 Last Action: Continued on 03/03/201640 by GARIMA WOLFE Zinc (Zinc) 50 Mg Tablet, 30 MG PO DAILY for vitamin, (Reported) Entered as Reported by: GARIMA WOLFE on 03/03/201345 Last Taken: Unknown Dose on 03/02/20 Last Action: Converted on 03/03/201640 by GARIMA WOLFE Scheduled PRN Oxycodone/Apap 10-325 (Percocet 10-325 Mg Tablet ) 1 Each Tablet, 1 TAB PO PRN Q6HRS PRN for MODERATE-SEVERE PAIN, #30 Prescribed by: SAIDA NOONAN MD on 03/08/20 1338 Justicifation of Admission Dx: Justifications for Admission: Justification of Admission Dx: Yes SAIDA NOONAN MD Mar 08, 2020 13:51
--- NOTE | 2020-03-08 15:04 | NUR ---
Patient discharged to home. Discharge instructions given. PIV and monitor removed. Escorted off unit per wheelchair into a private vehicle.
--- NOTE | 2020-03-08 16:52 | NUR ---
SW following. Spoke with RN and reviewed chart. Pt to discharge home, self-care. Spoke with pt who stated her friend works for a HH company and she will call if HH is needed. Pt declined HH orders and discharged on oral medications and room air. No further SW needs at this time.
[2020-03-08] MEDS ORDERED: AMOXICILLIN/K CLAV 875/125MG TABLET. PO SCH (21:00)
== END 2020-03-08 14:50 | disposition home or self-care (01) | DRG 872 ==
LOC: 4 NORTH 20:45 → 6 SOUTH 03-02 02:45
PROVIDERS: ADMIT Internal Medicine; ATTEND Internal Medicine
PROC: 0D9P30Z Drainage of Rectum with Drainage Device, Percutaneous Approach (ICD-10-PCS; principal; 2020-03-04)
DX: A41.9 Sepsis, unspecified organism (principal); K57.20 Diverticulitis of large intestine with perforation and abscess without bleeding; K61.1 Rectal abscess; Z20.828 Contact with and (suspected) exposure to other viral communicable diseases; E66.9 Obesity, unspecified; E87.6 Hypokalemia; K21.9 Gastro-esophageal reflux disease without esophagitis; K22.70 Barrett's esophagus without dysplasia; K44.9 Diaphragmatic hernia without obstruction or gangrene; K59.00 Constipation, unspecified; M06.9 Rheumatoid arthritis, unspecified; Z96.653 Presence of artificial knee joint, bilateral; Z80.0 Family history of malignant neoplasm of digestive organs; Z83.3 Family history of diabetes mellitus; Z90.711 Acquired absence of uterus with remaining cervical stump; Z68.38 Body mass index [BMI] 38.0-38.9, adult
CPT/HCPCS: 36415; 49406; 74176; 80048; 80053; 85007; 85025; 85610; 86140; 87071; 87075; 87426; 99152; 99153; A4215; C1729; C1894; C9113; J1170; J2250; J2270; J2543; J3010; J3490; J7030; J7120; J7512; G0378; U0003-CS

== ENCOUNTER → 2020-03-15 | Outpatient (CLI) | payer BC ==
[2020-03-08 11:20] VITALS: BP 144/75
[~2020-03-15] MED LIST: AMOX1TAB11 PO; ASCO500C PO; CHOL500021 PO; CONTRAST GIVEN. MC PRN; IOHEXOL 240 MG/ML 50ML VIAL. PO ONE; IOHEXOL 300 MG/ML 100ML VIAL. IV ONE; LACT1CAP19 PO; OMEP40CA45 PO; OXYC1TAB22 PO; PRED20TA PO; ZINC50TA39 PO
--- NOTE | 2020-03-15 10:20 | RAD ---
PQRS Compliance Statement: One or more of the following individualized dose reduction techniques were utilized for this examination: 1. Automated exposure control 2. Adjustment of the mA and/or kV according to patient size 3. Use of iterative reconstruction technique CT abdomen/pelvis with contrast 03/15/2020 9:00 AM INDICATION: Diverticulitis with abscess. Perforated diverticulitis. COMPARISON: CT abdomen/pelvis 03/03/2020 TECHNIQUE: Multiple axial CT images of the abdomen and pelvis were obtained after the intravenous administration of 75 mL Omnipaque 300. Coronal and sagittal reformats are provided. FINDINGS: Lung bases are clear. There is subsegmental atelectasis at the right lung base. Moderate to large size hiatal hernia with minimal fluid adjacent to the distal esophagus. Heart size within normal limits. Liver is normal in appearance. Portal venous system is widely patent. Spleen, bilateral adrenal glands and pancreas are normal in appearance. Pancreas is predominantly intrathoracic. Gallbladder is present without adjacent inflammation. Abdominal aorta is normal in course and caliber. No pathologically enlarged lymph nodes are identified in abdomen and pelvis. Small fat-containing right inguinal hernia. There is a pigtail catheter extending from the left gluteal region and terminating within the dependent portion of pelvis. There is minimal gas surrounding the pigtail catheter without significant amount fluid. There is a fluid collection in the right mesorectal fat measuring 2.5 x 1.9 cm, previously measuring 4.1 x 3.4 cm. Uterus is surgically absent. Moderate colonic diverticulosis with improving inflammatory changes suggesting resolving diverticulitis. Small bowel appears normal in caliber. Opacified bowel loops since her normal mucosal fold pattern. Appendix is normal in appearance. Kidneys are normal in appearance with symmetric enhancement. No hydronephrosis or suspicious renal mass. Urinary bladder is within normal limits given degree of distention. No suspicious osseous abnormality is identified. IMPRESSION: Moderate diverticulosis with improving diverticulitis of the sigmoid colon. Resolution of a left mesorectal fluid collection status post drainage catheter placement. There is decrease in size of a right mesorectal fluid collection measuring 4.1 x 3.4 cm and currently measuring 2.5 x 1.9 cm. No significant fluid is noted along the pelvic pigtail catheter. Moderate to large size hiatal hernia with partial intrathoracic stomach and pancreas. Minimal fluid noted adjacent to the distal esophagus on the right. Electronically signed by: Karla Orr MD (03/15/2020 10:17 AM) [id number]
== END ==
LOC: CT 07:52
PROVIDERS: ATTEND Surgery
DX: K57.92 Diverticulitis of intestine, part unspecified, without perforation or abscess without bleeding (principal); J98.11 Atelectasis; K44.9 Diaphragmatic hernia without obstruction or gangrene; K40.90 Unilateral inguinal hernia, without obstruction or gangrene, not specified as recurrent; K57.30 Diverticulosis of large intestine without perforation or abscess without bleeding
CPT/HCPCS: 74177; Q9966; Q9967